=== PATIENT | male | born 1955 | race Caucasian/White ===

== ENCOUNTER 2016-04-08 09:24 | Outpatient (CLI) | payer BC ==
[~2016-04-08 09:24] MED LIST: ACET-868 PO; ASCO500T9 PO; BISA10SU8 RC; BUPR300T54 PO; HYDR25TA4 PO; LACT1CAP72 PO; LOSA25TA13 PO; MAGN400O6 PO; NA P133E RC; VILA40TA PO; ZINC220T PO
== END 2016-04-08 23:59 | disposition home or self-care (01) ==
LOC: WOU 09:24
PROVIDERS: ATTEND Podiatrist Foot & Ankle Surgery
DX: G60.3 Idiopathic progressive neuropathy (principal); L97.521 Non-pressure chronic ulcer of other part of left foot limited to breakdown of skin; E66.9 Obesity, unspecified; Z68.28 Body mass index [BMI] 28.0-28.9, adult; I73.81 Erythromelalgia; M14.672 Charcot's joint, left ankle and foot; M14.671 Charcot's joint, right ankle and foot; S91.114D Laceration without foreign body of right lesser toe(s) without damage to nail, subsequent encounter; W22.8XXD Striking against or struck by other objects, subsequent encounter
CPT/HCPCS: 11042; A6402

== ENCOUNTER 2016-04-22 10:00 | Outpatient (CLI) | payer BC | END 2016-04-22 23:59 | disposition home or self-care (01) | LOC: WOU 10:00 | PROVIDERS: ATTEND Podiatrist Foot & Ankle Surgery | DX: G60.3 Idiopathic progressive neuropathy (principal); I96 Gangrene, not elsewhere classified; L97.421 Non-pressure chronic ulcer of left heel and midfoot limited to breakdown of skin; L60.0 Ingrowing nail; M14.672 Charcot's joint, left ankle and foot; M14.671 Charcot's joint, right ankle and foot; R60.0 Localized edema; I73.81 Erythromelalgia | CPT/HCPCS: 11042; A6402 ==

== ENCOUNTER 2016-05-06 10:14 | Outpatient (CLI) | payer BC | END 2016-05-06 23:59 | disposition home or self-care (01) | LOC: WOU 10:14 | PROVIDERS: ATTEND Podiatrist Foot & Ankle Surgery | DX: G60.3 Idiopathic progressive neuropathy (principal); L97.421 Non-pressure chronic ulcer of left heel and midfoot limited to breakdown of skin; R60.0 Localized edema; L60.0 Ingrowing nail; M14.672 Charcot's joint, left ankle and foot; M86.671 Other chronic osteomyelitis, right ankle and foot; I73.81 Erythromelalgia; L03.116 Cellulitis of left lower limb; Z82.3 Family history of stroke; Z80.9 Family history of malignant neoplasm, unspecified; Z81.1 Family history of alcohol abuse and dependence; Z82.49 Family history of ischemic heart disease and other diseases of the circulatory system | CPT/HCPCS: 11042; 87070; 87077; A6402 ==

== ENCOUNTER 2016-05-09 09:38 | Outpatient (CLI) | payer BC | END 2016-05-09 23:59 | disposition home or self-care (01) | LOC: WOU 09:38 | PROVIDERS: ATTEND Podiatrist Foot & Ankle Surgery | DX: G60.3 Idiopathic progressive neuropathy (principal); L97.421 Non-pressure chronic ulcer of left heel and midfoot limited to breakdown of skin; M14.672 Charcot's joint, left ankle and foot; M14.671 Charcot's joint, right ankle and foot; I73.81 Erythromelalgia; L60.0 Ingrowing nail; E66.9 Obesity, unspecified; Z68.28 Body mass index [BMI] 28.0-28.9, adult; L03.116 Cellulitis of left lower limb; B95.62 Methicillin resistant Staphylococcus aureus infection as the cause of diseases classified elsewhere | CPT/HCPCS: 11042; A6402 ==

== ENCOUNTER 2016-05-16 09:50 | Outpatient (CLI) | payer BC | END 2016-05-16 23:59 | disposition home or self-care (01) | DX: G60.3 Idiopathic progressive neuropathy (principal); L97.429 Non-pressure chronic ulcer of left heel and midfoot with unspecified severity; L03.116 Cellulitis of left lower limb; R60.0 Localized edema; M14.672 Charcot's joint, left ankle and foot; E66.9 Obesity, unspecified; Z68.28 Body mass index [BMI] 28.0-28.9, adult; I73.81 Erythromelalgia; M86.671 Other chronic osteomyelitis, right ankle and foot | CPT/HCPCS: 11042; A6402 ==

== ENCOUNTER 2016-05-23 09:54 | Outpatient (CLI) | payer BC | END 2016-05-23 23:59 | disposition home or self-care (01) | LOC: WOU 09:54 | PROVIDERS: ATTEND Podiatrist Foot & Ankle Surgery | DX: L03.031 Cellulitis of right toe (principal); L60.0 Ingrowing nail; G60.3 Idiopathic progressive neuropathy; M14.672 Charcot's joint, left ankle and foot; M14.671 Charcot's joint, right ankle and foot; I73.81 Erythromelalgia; E66.9 Obesity, unspecified; Z68.28 Body mass index [BMI] 28.0-28.9, adult; R60.0 Localized edema | CPT/HCPCS: 11730; A6402; J3490 ==

== ENCOUNTER 2016-05-30 09:39 | Outpatient (CLI) | payer BC | END 2016-05-30 23:59 | disposition home or self-care (01) | LOC: WOU 09:39 | PROVIDERS: ATTEND Podiatrist Foot & Ankle Surgery | DX: G60.3 Idiopathic progressive neuropathy (principal); M14.671 Charcot's joint, right ankle and foot; M14.672 Charcot's joint, left ankle and foot; E66.9 Obesity, unspecified; Z68.28 Body mass index [BMI] 28.0-28.9, adult; R60.0 Localized edema; I73.81 Erythromelalgia; Z91.19 Patient's noncompliance with other medical treatment and regimen; M86.671 Other chronic osteomyelitis, right ankle and foot | CPT/HCPCS: A6402; G0463 ==

== ENCOUNTER 2016-07-01 09:50 | Outpatient (CLI) | payer BC | END 2016-07-01 23:59 | disposition home or self-care (01) | LOC: WOU 09:50 | PROVIDERS: ATTEND Podiatrist Foot & Ankle Surgery | DX: S91.312A Laceration without foreign body, left foot, initial encounter (principal); X58.XXXA Exposure to other specified factors, initial encounter; Y92.89 Other specified places as the place of occurrence of the external cause; E66.9 Obesity, unspecified; Z68.28 Body mass index [BMI] 28.0-28.9, adult; R60.0 Localized edema; I73.81 Erythromelalgia; M14.672 Charcot's joint, left ankle and foot; G60.3 Idiopathic progressive neuropathy; Z91.19 Patient's noncompliance with other medical treatment and regimen; M14.671 Charcot's joint, right ankle and foot; L03.031 Cellulitis of right toe; F32.9 Major depressive disorder, single episode, unspecified; M86.671 Other chronic osteomyelitis, right ankle and foot; Z79.899 Other long term (current) drug therapy | CPT/HCPCS: 11042; A6402 ==

== ENCOUNTER 2016-07-08 09:44 | Outpatient (CLI) | payer BC | END 2016-07-08 23:59 | disposition home or self-care (01) | LOC: WOU 09:44 | PROVIDERS: ATTEND Podiatrist Foot & Ankle Surgery | DX: S91.312A Laceration without foreign body, left foot, initial encounter (principal); L03.031 Cellulitis of right toe; X58.XXXA Exposure to other specified factors, initial encounter; Y92.89 Other specified places as the place of occurrence of the external cause; M14.672 Charcot's joint, left ankle and foot; G60.3 Idiopathic progressive neuropathy; E66.9 Obesity, unspecified; Z68.28 Body mass index [BMI] 28.0-28.9, adult; I73.81 Erythromelalgia; I10 Essential (primary) hypertension; F32.9 Major depressive disorder, single episode, unspecified; M14.671 Charcot's joint, right ankle and foot; R60.0 Localized edema; L60.3 Nail dystrophy; Z79.899 Other long term (current) drug therapy; Z79.891 Long term (current) use of opiate analgesic | CPT/HCPCS: 11042; A6402 ==

== ENCOUNTER 2016-07-15 11:10 | Outpatient (CLI) | payer BC | END 2016-07-15 23:59 | disposition home or self-care (01) | LOC: WOU 11:10 | PROVIDERS: ATTEND Podiatrist Foot & Ankle Surgery | DX: S91.312A Laceration without foreign body, left foot, initial encounter (principal); X58.XXXA Exposure to other specified factors, initial encounter; M14.672 Charcot's joint, left ankle and foot; G60.3 Idiopathic progressive neuropathy; E66.9 Obesity, unspecified; Z68.28 Body mass index [BMI] 28.0-28.9, adult; I73.81 Erythromelalgia; I10 Essential (primary) hypertension; F32.9 Major depressive disorder, single episode, unspecified; M14.671 Charcot's joint, right ankle and foot; R60.0 Localized edema; L60.3 Nail dystrophy; Z79.899 Other long term (current) drug therapy; Z79.891 Long term (current) use of opiate analgesic; L03.031 Cellulitis of right toe | CPT/HCPCS: 11042; 73630; 87070; A6402 ==

== ENCOUNTER 2016-07-18 08:50 | Outpatient (CLI) | payer BC | END 2016-07-18 23:59 | disposition home or self-care (01) | LOC: WOU 08:50 | PROVIDERS: ATTEND Podiatrist Foot & Ankle Surgery | DX: S91.312A Laceration without foreign body, left foot, initial encounter (principal); X58.XXXA Exposure to other specified factors, initial encounter; G60.3 Idiopathic progressive neuropathy; M14.672 Charcot's joint, left ankle and foot; E66.9 Obesity, unspecified; Z68.28 Body mass index [BMI] 28.0-28.9, adult; I73.81 Erythromelalgia; I10 Essential (primary) hypertension; F32.9 Major depressive disorder, single episode, unspecified; M14.671 Charcot's joint, right ankle and foot; L60.3 Nail dystrophy; Z79.899 Other long term (current) drug therapy; Z79.891 Long term (current) use of opiate analgesic; L03.031 Cellulitis of right toe | CPT/HCPCS: 11042; A6402; A6452 ==

== ENCOUNTER 2016-07-25 09:45 | Outpatient (CLI) | payer BC | END 2016-07-25 23:59 | disposition home or self-care (01) | LOC: WOU 09:45 | PROVIDERS: ATTEND Podiatrist Foot & Ankle Surgery | DX: S91.312D Laceration without foreign body, left foot, subsequent encounter (principal); X58.XXXD Exposure to other specified factors, subsequent encounter; M14.672 Charcot's joint, left ankle and foot; G60.3 Idiopathic progressive neuropathy; E66.9 Obesity, unspecified; Z68.28 Body mass index [BMI] 28.0-28.9, adult; L60.0 Ingrowing nail; M86.671 Other chronic osteomyelitis, right ankle and foot; R60.0 Localized edema; I73.81 Erythromelalgia | CPT/HCPCS: 29445; A6197; A6402 ==

== ENCOUNTER → 2016-08-01 | Outpatient (CLI) | payer BC | END | disposition home or self-care (01) | LOC: WOU 10:20 | PROVIDERS: ATTEND Podiatrist Foot & Ankle Surgery | DX: S91.312D Laceration without foreign body, left foot, subsequent encounter (principal); X58.XXXD Exposure to other specified factors, subsequent encounter; G60.3 Idiopathic progressive neuropathy; M14.672 Charcot's joint, left ankle and foot; M14.671 Charcot's joint, right ankle and foot; E66.9 Obesity, unspecified; Z68.28 Body mass index [BMI] 28.0-28.9, adult; R60.0 Localized edema; L60.0 Ingrowing nail; I73.81 Erythromelalgia; L60.3 Nail dystrophy; L03.031 Cellulitis of right toe | CPT/HCPCS: 29445; A6197; A6402 ==

== ENCOUNTER 2016-08-08 10:34 | Outpatient (CLI) | payer BC | END 2016-08-08 23:59 | disposition home or self-care (01) | LOC: WOU 10:34 | PROVIDERS: ATTEND Podiatrist Foot & Ankle Surgery | DX: S91.312D Laceration without foreign body, left foot, subsequent encounter (principal); X58.XXXD Exposure to other specified factors, subsequent encounter; G60.3 Idiopathic progressive neuropathy; M14.672 Charcot's joint, left ankle and foot; M14.671 Charcot's joint, right ankle and foot; E66.9 Obesity, unspecified; Z68.28 Body mass index [BMI] 28.0-28.9, adult; M86.671 Other chronic osteomyelitis, right ankle and foot; I73.81 Erythromelalgia; M20.42 Other hammer toe(s) (acquired), left foot; M20.41 Other hammer toe(s) (acquired), right foot; L60.3 Nail dystrophy; S90.414A Abrasion, right lesser toe(s), initial encounter; X58.XXXA Exposure to other specified factors, initial encounter; Y92.89 Other specified places as the place of occurrence of the external cause | CPT/HCPCS: 29445; A6402 ==

== ENCOUNTER 2016-08-15 09:43 | Outpatient (CLI) | payer BC | END 2016-08-15 23:59 | disposition home or self-care (01) | LOC: WOU 09:43 | PROVIDERS: ATTEND Podiatrist Foot & Ankle Surgery | DX: S91.312D Laceration without foreign body, left foot, subsequent encounter (principal); X58.XXXD Exposure to other specified factors, subsequent encounter; E11.621 Type 2 diabetes mellitus with foot ulcer; L97.511 Non-pressure chronic ulcer of other part of right foot limited to breakdown of skin; E11.610 Type 2 diabetes mellitus with diabetic neuropathic arthropathy; E11.42 Type 2 diabetes mellitus with diabetic polyneuropathy; I73.81 Erythromelalgia; L60.0 Ingrowing nail; M20.41 Other hammer toe(s) (acquired), right foot; M20.42 Other hammer toe(s) (acquired), left foot; E66.9 Obesity, unspecified | CPT/HCPCS: 11042; A6402 ==

== ENCOUNTER 2016-08-26 10:10 | Outpatient (CLI) | payer BC | END 2016-08-26 23:59 | disposition home or self-care (01) | LOC: WOU 10:10 | PROVIDERS: ATTEND Podiatrist Foot & Ankle Surgery | DX: T81.31XD Disruption of external operation (surgical) wound, not elsewhere classified, subsequent encounter (principal); S91.312D Laceration without foreign body, left foot, subsequent encounter; X58.XXXD Exposure to other specified factors, subsequent encounter; S90.414D Abrasion, right lesser toe(s), subsequent encounter; M14.672 Charcot's joint, left ankle and foot; G60.3 Idiopathic progressive neuropathy; E66.9 Obesity, unspecified; M86.671 Other chronic osteomyelitis, right ankle and foot; I73.81 Erythromelalgia; M20.41 Other hammer toe(s) (acquired), right foot; M20.42 Other hammer toe(s) (acquired), left foot; Z68.28 Body mass index [BMI] 28.0-28.9, adult | CPT/HCPCS: 11042; A6402 ==

== ENCOUNTER 2016-09-05 10:25 | Outpatient (CLI) | payer BC | END 2016-09-05 23:59 | disposition home or self-care (01) | LOC: WOU 10:25 | PROVIDERS: ATTEND Podiatrist Foot & Ankle Surgery | DX: S91.311D Laceration without foreign body, right foot, subsequent encounter (principal); S91.114D Laceration without foreign body of right lesser toe(s) without damage to nail, subsequent encounter; X58.XXXD Exposure to other specified factors, subsequent encounter; M14.672 Charcot's joint, left ankle and foot; M14.671 Charcot's joint, right ankle and foot; I73.81 Erythromelalgia; G60.3 Idiopathic progressive neuropathy; E66.9 Obesity, unspecified; Z68.28 Body mass index [BMI] 28.0-28.9, adult | CPT/HCPCS: 99214; A6402; G0463 ==

== ENCOUNTER 2016-09-26 10:50 | Outpatient (CLI) | payer BC | END 2016-09-26 23:59 | disposition home or self-care (01) | LOC: WOU 10:50 | PROVIDERS: ATTEND Surgery | DX: L97.421 Non-pressure chronic ulcer of left heel and midfoot limited to breakdown of skin (principal); G60.3 Idiopathic progressive neuropathy; S91.312D Laceration without foreign body, left foot, subsequent encounter; S91.114D Laceration without foreign body of right lesser toe(s) without damage to nail, subsequent encounter; X58.XXXD Exposure to other specified factors, subsequent encounter; M14.672 Charcot's joint, left ankle and foot; M14.671 Charcot's joint, right ankle and foot; I73.81 Erythromelalgia; Z80.0 Family history of malignant neoplasm of digestive organs; Z80.8 Family history of malignant neoplasm of other organs or systems; Z82.49 Family history of ischemic heart disease and other diseases of the circulatory system; Z82.3 Family history of stroke; Z82.5 Family history of asthma and other chronic lower respiratory diseases | CPT/HCPCS: 11042; A6402 ==

== ENCOUNTER 2016-10-07 10:52 | Outpatient (CLI) | payer BC | END 2016-10-07 22:35 | disposition home or self-care (01) | LOC: WOU 10:52 | PROVIDERS: ATTEND Podiatrist Foot & Ankle Surgery | DX: G60.3 Idiopathic progressive neuropathy (principal); L97.421 Non-pressure chronic ulcer of left heel and midfoot limited to breakdown of skin; M14.672 Charcot's joint, left ankle and foot; I73.81 Erythromelalgia; Z82.49 Family history of ischemic heart disease and other diseases of the circulatory system; Z80.9 Family history of malignant neoplasm, unspecified; Z82.61 Family history of arthritis; Z82.3 Family history of stroke | CPT/HCPCS: 11042; A6402 ==

== ENCOUNTER 2016-10-14 10:02 | Outpatient (CLI) | payer BC | END 2016-10-14 23:59 | disposition home or self-care (01) | LOC: WOU 10:02 | PROVIDERS: ATTEND Podiatrist Foot & Ankle Surgery | DX: G60.3 Idiopathic progressive neuropathy (principal); L97.421 Non-pressure chronic ulcer of left heel and midfoot limited to breakdown of skin; S91.312S Laceration without foreign body, left foot, sequela; X58.XXXS Exposure to other specified factors, sequela; M14.672 Charcot's joint, left ankle and foot; I73.81 Erythromelalgia; Z82.49 Family history of ischemic heart disease and other diseases of the circulatory system; Z80.9 Family history of malignant neoplasm, unspecified; Z82.61 Family history of arthritis; Z82.3 Family history of stroke; I10 Essential (primary) hypertension; M20.42 Other hammer toe(s) (acquired), left foot; M20.41 Other hammer toe(s) (acquired), right foot; R60.0 Localized edema; E66.9 Obesity, unspecified; Z68.28 Body mass index [BMI] 28.0-28.9, adult; Z79.899 Other long term (current) drug therapy | CPT/HCPCS: 11042; A6402 ==

== ENCOUNTER 2016-10-28 11:15 | Outpatient (CLI) | payer BC | END 2016-10-28 23:59 | disposition home or self-care (01) | LOC: WOU 11:15 | PROVIDERS: ATTEND Podiatrist Foot & Ankle Surgery | DX: M14.672 Charcot's joint, left ankle and foot (principal); S91.312D Laceration without foreign body, left foot, subsequent encounter; X58.XXXD Exposure to other specified factors, subsequent encounter; E66.9 Obesity, unspecified; Z68.28 Body mass index [BMI] 28.0-28.9, adult; R60.0 Localized edema; M86.671 Other chronic osteomyelitis, right ankle and foot; I73.81 Erythromelalgia; Z82.3 Family history of stroke; Z82.49 Family history of ischemic heart disease and other diseases of the circulatory system; Z82.61 Family history of arthritis; Z79.899 Other long term (current) drug therapy; F32.9 Major depressive disorder, single episode, unspecified | CPT/HCPCS: 11042; A6402 ==

== ENCOUNTER 2016-11-04 10:55 | Outpatient (CLI) | payer BC | END 2016-11-04 23:59 | disposition home or self-care (01) | LOC: WOU 10:55 | PROVIDERS: ATTEND Podiatrist Foot & Ankle Surgery | DX: M14.672 Charcot's joint, left ankle and foot (principal); G60.3 Idiopathic progressive neuropathy; E66.9 Obesity, unspecified; Z68.28 Body mass index [BMI] 28.0-28.9, adult; M86.671 Other chronic osteomyelitis, right ankle and foot; I73.81 Erythromelalgia; S91.114A Laceration without foreign body of right lesser toe(s) without damage to nail, initial encounter; X58.XXXA Exposure to other specified factors, initial encounter; Y92.89 Other specified places as the place of occurrence of the external cause; R60.0 Localized edema | CPT/HCPCS: 11042; A6402 ==

== ENCOUNTER 2016-11-11 11:16 | Outpatient (CLI) | payer BC | END 2016-11-11 23:59 | disposition home or self-care (01) | LOC: WOU 11:16 | PROVIDERS: ATTEND Podiatrist Foot & Ankle Surgery | DX: G60.3 Idiopathic progressive neuropathy (principal); M14.672 Charcot's joint, left ankle and foot; E66.9 Obesity, unspecified; Z68.28 Body mass index [BMI] 28.0-28.9, adult; I73.81 Erythromelalgia; S91.312D Laceration without foreign body, left foot, subsequent encounter; X58.XXXD Exposure to other specified factors, subsequent encounter; M86.671 Other chronic osteomyelitis, right ankle and foot; L03.031 Cellulitis of right toe | CPT/HCPCS: 11042; A6402 ==

== ENCOUNTER 2016-11-18 10:20 | Outpatient (CLI) | payer BC | END 2016-11-18 23:59 | disposition home or self-care (01) | LOC: WOU 10:20 | PROVIDERS: ATTEND Podiatrist Foot & Ankle Surgery | DX: S91.312A Laceration without foreign body, left foot, initial encounter (principal); X58.XXXA Exposure to other specified factors, initial encounter; Y92.89 Other specified places as the place of occurrence of the external cause; M14.672 Charcot's joint, left ankle and foot; G60.3 Idiopathic progressive neuropathy; E66.9 Obesity, unspecified; Z68.28 Body mass index [BMI] 28.0-28.9, adult; M86.671 Other chronic osteomyelitis, right ankle and foot; I73.81 Erythromelalgia; R60.0 Localized edema | CPT/HCPCS: 11042; A6402 ==

== ENCOUNTER 2016-12-02 10:30 | Outpatient (CLI) | payer BC | END 2016-12-02 23:59 | disposition home or self-care (01) | LOC: WOU 10:30 | PROVIDERS: ATTEND Podiatrist Foot & Ankle Surgery | DX: G60.3 Idiopathic progressive neuropathy (principal); M14.672 Charcot's joint, left ankle and foot; E66.9 Obesity, unspecified; Z68.28 Body mass index [BMI] 28.0-28.9, adult; I73.81 Erythromelalgia; L97.421 Non-pressure chronic ulcer of left heel and midfoot limited to breakdown of skin; S91.312A Laceration without foreign body, left foot, initial encounter; X58.XXXA Exposure to other specified factors, initial encounter | CPT/HCPCS: 11042; A6402 ==

== ENCOUNTER 2016-12-19 10:25 | Outpatient (CLI) | payer BC | END 2016-12-19 23:59 | disposition home or self-care (01) | LOC: WOU 10:25 | PROVIDERS: ATTEND Podiatrist Foot & Ankle Surgery | DX: G60.3 Idiopathic progressive neuropathy (principal); L97.521 Non-pressure chronic ulcer of other part of left foot limited to breakdown of skin; E66.9 Obesity, unspecified; Z68.28 Body mass index [BMI] 28.0-28.9, adult; I73.81 Erythromelalgia; M20.42 Other hammer toe(s) (acquired), left foot; M20.41 Other hammer toe(s) (acquired), right foot; M14.672 Charcot's joint, left ankle and foot; S91.312S Laceration without foreign body, left foot, sequela; R60.0 Localized edema; X58.XXXS Exposure to other specified factors, sequela | CPT/HCPCS: 11042; A6402 ==

== ENCOUNTER 2016-12-24 11:17 | Outpatient (CLI) | payer BC | END 2016-12-24 23:59 | disposition home or self-care (01) | LOC: RAD 11:17 | PROVIDERS: ATTEND Podiatrist Foot & Ankle Surgery | DX: L97.529 Non-pressure chronic ulcer of other part of left foot with unspecified severity (principal) | CPT/HCPCS: 73630-TC ==

== ENCOUNTER 2016-12-26 10:40 | Outpatient (CLI) | payer BC | END 2016-12-26 23:59 | disposition home or self-care (01) | LOC: WOU 10:40 | PROVIDERS: ATTEND Podiatrist Foot & Ankle Surgery | DX: S91.312A Laceration without foreign body, left foot, initial encounter (principal); G60.3 Idiopathic progressive neuropathy; X58.XXXA Exposure to other specified factors, initial encounter; M14.672 Charcot's joint, left ankle and foot; E66.9 Obesity, unspecified; Z68.28 Body mass index [BMI] 28.0-28.9, adult; R60.0 Localized edema; I73.81 Erythromelalgia | CPT/HCPCS: 11042; A6402 ×3 ==

== ENCOUNTER 2016-12-27 09:58 | Outpatient (CLI) | payer BC | END 2016-12-27 23:59 | disposition home or self-care (01) | LOC: CT 09:58 | PROVIDERS: ATTEND Podiatrist Foot & Ankle Surgery | DX: M81.0 Age-related osteoporosis without current pathological fracture (principal); M21.962 Unspecified acquired deformity of left lower leg; M24.675 Ankylosis, left foot | CPT/HCPCS: 73700-TC ==

== ENCOUNTER 2017-01-02 10:15 | Outpatient (CLI) | payer BC | END 2017-01-02 23:59 | disposition home or self-care (01) | LOC: WOU 10:15 | PROVIDERS: ATTEND Podiatrist Foot & Ankle Surgery | DX: S91.312A Laceration without foreign body, left foot, initial encounter (principal); G60.3 Idiopathic progressive neuropathy; X58.XXXA Exposure to other specified factors, initial encounter; M14.672 Charcot's joint, left ankle and foot; E66.9 Obesity, unspecified; Z68.28 Body mass index [BMI] 28.0-28.9, adult; R60.0 Localized edema; I73.81 Erythromelalgia; M20.41 Other hammer toe(s) (acquired), right foot; M20.42 Other hammer toe(s) (acquired), left foot | CPT/HCPCS: 11042; A6402 ==

== ENCOUNTER 2017-01-09 10:30 | Outpatient (CLI) | payer BC | END 2017-01-09 23:59 | disposition home or self-care (01) | LOC: WOU 10:30 | PROVIDERS: ATTEND Podiatrist Foot & Ankle Surgery | DX: S91.312A Laceration without foreign body, left foot, initial encounter (principal); X58.XXXA Exposure to other specified factors, initial encounter; G60.3 Idiopathic progressive neuropathy; M14.672 Charcot's joint, left ankle and foot; E66.9 Obesity, unspecified; Z68.28 Body mass index [BMI] 28.0-28.9, adult; I73.81 Erythromelalgia; M20.41 Other hammer toe(s) (acquired), right foot; M20.42 Other hammer toe(s) (acquired), left foot | CPT/HCPCS: 11042; A6209; A6402 ×2 ==

== ENCOUNTER 2017-01-13 10:20 | Outpatient (CLI) | payer BC | END 2017-01-13 23:59 | disposition home or self-care (01) | LOC: WOU 10:20 | PROVIDERS: ATTEND Podiatrist Foot & Ankle Surgery | DX: S91.312A Laceration without foreign body, left foot, initial encounter (principal); X58.XXXA Exposure to other specified factors, initial encounter; G60.3 Idiopathic progressive neuropathy; M14.672 Charcot's joint, left ankle and foot; E66.9 Obesity, unspecified; Z68.28 Body mass index [BMI] 28.0-28.9, adult; I73.81 Erythromelalgia; M20.42 Other hammer toe(s) (acquired), left foot; M20.41 Other hammer toe(s) (acquired), right foot | CPT/HCPCS: 11042; A6209; A6402 ==

== ENCOUNTER 2017-01-20 10:05 | Outpatient (CLI) | payer BC | END 2017-01-20 23:59 | disposition home or self-care (01) | LOC: WOU 10:05 | PROVIDERS: ATTEND Podiatrist Foot & Ankle Surgery | DX: L97.511 Non-pressure chronic ulcer of other part of right foot limited to breakdown of skin (principal); S91.312S Laceration without foreign body, left foot, sequela; X58.XXXS Exposure to other specified factors, sequela; S91.111A Laceration without foreign body of right great toe without damage to nail, initial encounter; S91.114A Laceration without foreign body of right lesser toe(s) without damage to nail, initial encounter; X58.XXXA Exposure to other specified factors, initial encounter; Y92.89 Other specified places as the place of occurrence of the external cause; I73.81 Erythromelalgia; E66.9 Obesity, unspecified; M20.42 Other hammer toe(s) (acquired), left foot; M20.41 Other hammer toe(s) (acquired), right foot; R60.0 Localized edema; M14.672 Charcot's joint, left ankle and foot | CPT/HCPCS: 11042; A6209; A6402 ==

== ENCOUNTER 2017-01-23 11:25 | Outpatient (CLI) | payer BC | END 2017-01-23 23:59 | disposition home or self-care (01) | LOC: WOU 11:25 | PROVIDERS: ATTEND Podiatrist Foot & Ankle Surgery | DX: G60.9 Hereditary and idiopathic neuropathy, unspecified (principal); L97.511 Non-pressure chronic ulcer of other part of right foot limited to breakdown of skin; S91.114A Laceration without foreign body of right lesser toe(s) without damage to nail, initial encounter; X58.XXXA Exposure to other specified factors, initial encounter; Y92.89 Other specified places as the place of occurrence of the external cause; M14.672 Charcot's joint, left ankle and foot; M14.671 Charcot's joint, right ankle and foot; I73.81 Erythromelalgia; E66.9 Obesity, unspecified; M20.42 Other hammer toe(s) (acquired), left foot; M20.41 Other hammer toe(s) (acquired), right foot; R60.0 Localized edema | CPT/HCPCS: 11042; A6209; A6402 ==

== ENCOUNTER 2017-01-30 10:45 | Outpatient (CLI) | payer BC | END 2017-01-30 23:59 | disposition home or self-care (01) | LOC: WOU 10:45 | PROVIDERS: ATTEND Podiatrist Foot & Ankle Surgery | DX: L97.511 Non-pressure chronic ulcer of other part of right foot limited to breakdown of skin (principal); S91.312S Laceration without foreign body, left foot, sequela; X58.XXXS Exposure to other specified factors, sequela; I73.81 Erythromelalgia; G60.3 Idiopathic progressive neuropathy; M14.672 Charcot's joint, left ankle and foot; M20.42 Other hammer toe(s) (acquired), left foot; M20.41 Other hammer toe(s) (acquired), right foot; R60.0 Localized edema; E66.9 Obesity, unspecified | CPT/HCPCS: 11042; A6209; A6402 ==

== ENCOUNTER 2017-02-03 10:45 | Outpatient (CLI) | payer BC | END 2017-02-03 23:59 | disposition home or self-care (01) | LOC: WOU 10:45 | PROVIDERS: ATTEND Podiatrist Foot & Ankle Surgery | DX: L97.511 Non-pressure chronic ulcer of other part of right foot limited to breakdown of skin (principal); S91.312S Laceration without foreign body, left foot, sequela; X58.XXXS Exposure to other specified factors, sequela; I73.81 Erythromelalgia; G60.3 Idiopathic progressive neuropathy; M14.672 Charcot's joint, left ankle and foot; M20.42 Other hammer toe(s) (acquired), left foot; M20.41 Other hammer toe(s) (acquired), right foot; R60.0 Localized edema; E66.9 Obesity, unspecified | CPT/HCPCS: 11042; A6209; A6402 ==

== ENCOUNTER 2017-02-06 10:27 | Outpatient (CLI) | payer BC | END 2017-02-06 23:59 | LOC: WOU 10:27 | PROVIDERS: ATTEND Podiatrist Foot & Ankle Surgery | DX: L97.511 Non-pressure chronic ulcer of other part of right foot limited to breakdown of skin (principal); S91.312S Laceration without foreign body, left foot, sequela; X58.XXXS Exposure to other specified factors, sequela; I73.81 Erythromelalgia; G60.3 Idiopathic progressive neuropathy; M14.672 Charcot's joint, left ankle and foot; M20.42 Other hammer toe(s) (acquired), left foot; M20.41 Other hammer toe(s) (acquired), right foot; R60.0 Localized edema; E66.9 Obesity, unspecified; Z68.28 Body mass index [BMI] 28.0-28.9, adult | CPT/HCPCS: 11042; A6209; A6402 ==

== ENCOUNTER 2017-02-10 10:50 | Outpatient (CLI) | payer BC | END 2017-02-10 23:59 | disposition home or self-care (01) | LOC: WOU 10:50 | PROVIDERS: ATTEND Podiatrist Foot & Ankle Surgery | DX: L97.422 Non-pressure chronic ulcer of left heel and midfoot with fat layer exposed (principal); S91.312S Laceration without foreign body, left foot, sequela; X58.XXXS Exposure to other specified factors, sequela; I73.81 Erythromelalgia; F60.3 Borderline personality disorder; M14.672 Charcot's joint, left ankle and foot; M20.42 Other hammer toe(s) (acquired), left foot; M20.41 Other hammer toe(s) (acquired), right foot; R60.0 Localized edema; E66.9 Obesity, unspecified; Z68.28 Body mass index [BMI] 28.0-28.9, adult | CPT/HCPCS: 11042; A6209; A6402 ==

== ENCOUNTER 2017-02-17 11:20 | Outpatient (CLI) | payer BC | END 2017-02-17 23:59 | disposition home or self-care (01) | LOC: WOU 11:20 | PROVIDERS: ATTEND Podiatrist Foot & Ankle Surgery | DX: L97.422 Non-pressure chronic ulcer of left heel and midfoot with fat layer exposed (principal); L97.512 Non-pressure chronic ulcer of other part of right foot with fat layer exposed; S91.312S Laceration without foreign body, left foot, sequela; X58.XXXS Exposure to other specified factors, sequela; I73.81 Erythromelalgia; G60.3 Idiopathic progressive neuropathy; M14.672 Charcot's joint, left ankle and foot; M20.42 Other hammer toe(s) (acquired), left foot; M20.41 Other hammer toe(s) (acquired), right foot; R60.0 Localized edema; E66.9 Obesity, unspecified; Z68.28 Body mass index [BMI] 28.0-28.9, adult | CPT/HCPCS: 11042; A6209; A6402 ==

== ENCOUNTER 2017-02-20 10:15 | Outpatient (CLI) | payer BC | END 2017-02-20 23:59 | disposition home or self-care (01) | LOC: WOU 10:15 | PROVIDERS: ATTEND Podiatrist Foot & Ankle Surgery | DX: L97.422 Non-pressure chronic ulcer of left heel and midfoot with fat layer exposed (principal); L97.512 Non-pressure chronic ulcer of other part of right foot with fat layer exposed; S91.312S Laceration without foreign body, left foot, sequela; X58.XXXS Exposure to other specified factors, sequela; I73.81 Erythromelalgia; G60.3 Idiopathic progressive neuropathy; M14.672 Charcot's joint, left ankle and foot; M20.42 Other hammer toe(s) (acquired), left foot; M20.41 Other hammer toe(s) (acquired), right foot; R60.0 Localized edema; E66.9 Obesity, unspecified; Z68.28 Body mass index [BMI] 28.0-28.9, adult | CPT/HCPCS: 11042; A6402 ==

== ENCOUNTER 2017-02-27 10:53 | Outpatient (CLI) | payer BC | END 2017-02-27 23:59 | disposition home or self-care (01) | LOC: WOU 10:53 | PROVIDERS: ATTEND Podiatrist Foot & Ankle Surgery | DX: L97.422 Non-pressure chronic ulcer of left heel and midfoot with fat layer exposed (principal); L97.512 Non-pressure chronic ulcer of other part of right foot with fat layer exposed; G60.3 Idiopathic progressive neuropathy; S91.312S Laceration without foreign body, left foot, sequela; X58.XXXS Exposure to other specified factors, sequela; I73.81 Erythromelalgia; M14.672 Charcot's joint, left ankle and foot; M20.42 Other hammer toe(s) (acquired), left foot; M20.41 Other hammer toe(s) (acquired), right foot; R60.0 Localized edema; E66.9 Obesity, unspecified; Z68.28 Body mass index [BMI] 28.0-28.9, adult | CPT/HCPCS: 11042; A6402 ==

== ENCOUNTER 2017-03-03 11:55 | Outpatient (CLI) | payer BC | END 2017-03-03 23:59 | disposition home or self-care (01) | LOC: WOU 11:55 | PROVIDERS: ATTEND Podiatrist Foot & Ankle Surgery | DX: S91.312D Laceration without foreign body, left foot, subsequent encounter (principal); S91.311D Laceration without foreign body, right foot, subsequent encounter; X58.XXXD Exposure to other specified factors, subsequent encounter; L97.511 Non-pressure chronic ulcer of other part of right foot limited to breakdown of skin; M14.672 Charcot's joint, left ankle and foot; G60.3 Idiopathic progressive neuropathy; E66.9 Obesity, unspecified; R60.0 Localized edema; Z68.28 Body mass index [BMI] 28.0-28.9, adult | CPT/HCPCS: A6402; G0463 ==

== ENCOUNTER 2017-03-10 14:00 | Outpatient (CLI) | payer BC | END 2017-03-10 23:59 | disposition home or self-care (01) | LOC: WOU 14:00 | PROVIDERS: ATTEND Podiatrist Foot & Ankle Surgery | DX: L97.422 Non-pressure chronic ulcer of left heel and midfoot with fat layer exposed (principal); L97.512 Non-pressure chronic ulcer of other part of right foot with fat layer exposed; G60.3 Idiopathic progressive neuropathy; S91.312S Laceration without foreign body, left foot, sequela; S91.11 Laceration without foreign body of toe without damage to nail; X58.XXXS Exposure to other specified factors, sequela; M20.42 Other hammer toe(s) (acquired), left foot; M20.41 Other hammer toe(s) (acquired), right foot; E66.9 Obesity, unspecified; I73.81 Erythromelalgia; Z68.28 Body mass index [BMI] 28.0-28.9, adult; M14.672 Charcot's joint, left ankle and foot; R60.0 Localized edema | CPT/HCPCS: 11042; A6402 ==

== ENCOUNTER 2017-03-13 12:58 | Outpatient (CLI) | payer BC ==
[2017-03-13 13:52] LABS: CALCIUM, SERUM 9.5 mg/dL (8.5-10.1); CREATININE 1.4 mg/dL (0.6-1.3); POTASSIUM 3.9 mmol/L (3.5-5.1)
[2017-03-13 13:55] LABS: BASOPHILS % (AUTO) 0.3 % (0.0-2.0); EOSINOPHILS # (AUTO) 0.2 /CMM (0.0-0.7); EOSINOPHILS % (AUTO) 2.9 % (0.0-6.0); HEMATOCRIT 42 % (39-51); HEMOGLOBIN 14.1 g/dL (13.5-17.5); LYMPHOCYTES # (AUTO) 1.8 /CMM (0.8-4.8); LYMPHOCYTES % (AUTO) 22.2 % (20.0-44.0); MEAN CORPUSCULAR HEMOGLOBIN 31 PG (26.0-33.0); MEAN CORPUSCULAR HGB CONC 33 g/dl (31.0-36.0); MEAN CORPUSCULAR VOLUME 92 fL (80-96); MONOCYTES # (AUTO) 0.5 /CMM (0.1-1.30); MONOCYTES % (AUTO) 6.5 % (2.0-12.0); NEUTROPHILS # (AUTO) 5.6 /CMM (1.8-8.9); NEUTROPHILS % (AUTO) 68.1 % (43.0-81.0); PLATELET COUNT (AUTO) 342 /CMM (150-450); RDW COEFFICIENT OF VARIATION 14.3 (11.5-15.0); WHITE BLOOD COUNT (AUTO) 8.2 K/uL (4.3-11.0)
[2017-03-15 15:36] LABS: INR 0.95 (0.87-1.13); PROTHROMBIN TIME 9.9 SECS (9.5-12.7)
== END 2017-03-13 23:59 | disposition home or self-care (01) ==
LOC: LAB 12:58
PROVIDERS: ATTEND Podiatrist Foot & Ankle Surgery
DX: Z01.818 Encounter for other preprocedural examination (principal)
CPT/HCPCS: 36415; 71020-TC; 80048-TC; 85025-TC; 85610-TC

== ENCOUNTER 2017-03-18 11:30 | Outpatient (CLI) | payer BC | END 2017-03-18 23:59 | disposition home or self-care (01) | LOC: WOU 11:30 | PROVIDERS: ATTEND Nurse Practitioner Acute Care | DX: Z01.818 Encounter for other preprocedural examination (principal); L97.529 Non-pressure chronic ulcer of other part of left foot with unspecified severity; G47.30 Sleep apnea, unspecified; G89.4 Chronic pain syndrome; M14.679 Charcot's joint, unspecified ankle and foot; I73.81 Erythromelalgia; K21.9 Gastro-esophageal reflux disease without esophagitis; F41.9 Anxiety disorder, unspecified; F32.9 Major depressive disorder, single episode, unspecified; I10 Essential (primary) hypertension; N40.0 Benign prostatic hyperplasia without lower urinary tract symptoms; Z79.899 Other long term (current) drug therapy; M81.0 Age-related osteoporosis without current pathological fracture; M21.42 Flat foot [pes planus] (acquired), left foot | CPT/HCPCS: G0463 ==

== ENCOUNTER 2017-03-20 09:15 | Inpatient (IN) | payer BC ==
[~2017-03-20] VITALS: Ht 180.3 cm; Wt 99.8 kg
--- NOTE | 2017-03-20 09:45 | NUR ---
MS ZINC CHLORIDE OPERATOR NOTE PATIENT IS ALERT AND ORIENTED x4. NO PAIN AT THIS TIME. NO SOB OR DISTRESS NOTED. 94% ON ROOM AIR, TOLERATING WELL. ALL BELONGINGS WITH PATIENT AT BEDSIDE. PATIENT ADMITTED FROM WOUND CLINIC FOR DAY SURGERY FOR LEFT FOOT WOUND DEBRIDEMENT AND BONE EXCISION. ALL CONSENTS OBTAINED AND SURGICAL CHECKLIST IN CHART. PATIENT HAS NO KNOWN ALLERGIES. FULL CODE. NO ISOLATION. MRSA TO BE COLLECTED. WILL CONTINUE TO MONITOR THROUGHOUT SHIFT
[2017-03-20 09:55] VITALS: BP 120/78
[2017-03-20] MEDS ORDERED: METH10TA2 PO (11:05)
[2017-03-20] MEDS ORDERED: MODA200T22 PO (11:05)
[2017-03-20] MEDS ORDERED: PREG100C PO (11:05)
[2017-03-20] MEDS ORDERED: CAND32TA2 PO (11:05)
[2017-03-20] MEDS ORDERED: ARMO250T2 PO (11:05)
[2017-03-20] MEDS ORDERED: MIDAZOLAM HCL 2 MG/2ML VIAL ONE (12:06)
[2017-03-20] MEDS ORDERED: FENTANYL PF 100MCG/2ML AMPUL ONE (12:06)
--- NOTE | 2017-03-20 12:06 | NUR ---
MS RN NOTE PATIENT TAKEN TO OR. PATIENT IS ALERT AND ORIENTED x4. NO PAIN AT THIS TIME. NO SOB OR DISTRESS NOTED. WILL MONITOR WHEN PATIENT RETURNS
[2017-03-20] MEDS ORDERED: BUPIVACAINE 0.5 % PF 150 MG/30 ML VIAL ONE (12:19)
[2017-03-20] MEDS ORDERED: LIDOCAINE 0.5% HCL 50 ML VIAL ONE (12:19)
[2017-03-20] MEDS ORDERED: GELATIN SPONGE,ABSORBABLE 1 EA SPONGE TP ONE (13:49)
[2017-03-20] MEDS ORDERED: POVIDONE-IODINE OINT 28.4 GM TUBE ONE (13:57)
[2017-03-20] MEDS ORDERED: ANESTHESIA TRAY IN PYXIS 1 EA TRAY MC ONE (14:41)
--- NOTE | 2017-03-20 15:45 | NUR ---
MS RN NOTE PATIENT ARIEL FROM SURGERY, HAD LEFT FOOT WOUND DEBRIDEMENT DONE WITH DR. BAE AND DR. FUNG. PATIENT ALERT AND ORIENTED x4. NO PAIN AT THIS TIME. NO SOB OR DISTRESS NOTED. CALL LIGHT WITHIN REACH. SAFETY MEASURES IMPLEMENTED. SPLINT ON LEFT LOWER EXTREMITY NO TO BE REMOVED, PT EVALUATION , ORDERS NOTED AND CARRIED OUT. WILL CONTINUE TO MONITOR
[2017-03-20 16:00] VITALS: BP 127/71
--- NOTE | 2017-03-20 18:28 | NUR ---
MS RN CLOSING NOTE PATIENT IS ALERT AND ORIENTED x4. NO PAIN AT THIS TIME. NO SOB OR DISTRESS NOTED. CALL LIGHT WITHIN REACH AT ALL TIMES. SAFETY MEASURES IMPLEMENTED. ABLE TO COMMUNICATE NEEDS. HAS LEFT LOWER EXTREMITY SPLINT AND IS S/P WOUND DEBRIDEMENT TODAY.IV ON LEFT AC AND LEFT WRIST INTACT AND PATENT NO REDNESS OR SWELLING NOTED. WILL ENDORSE TO METEOROLOGICAL EQUIPMENT REPAIRER NURSE FOR MICHELLE
--- NOTE | 2017-03-20 20:59 | NUR ---
MS RN NOTES NO SIGNIFICANT CHANGES NOTED. REPORT GIVEN TO KELSEY DAVIS FOR CONTINUITY OF CARE.
--- NOTE | 2017-03-20 21:00 | NUR ---
RN OPEN NOTES RECEIVED PATIENT AWAKE IN BED. A/O X4. NO SIGNS OF DISTRESS OR DISCOMFORT. BREATHING EVEN AND UNLABORED. DENIES ANY PAIN AT THIS TIME. IV ACCESS IN LAC AND L WRIST, PATENT AND INTACT, NO SIGNS OF REDNESS OR INFILTRATION. DRESSING ON LLE C/D/I. BED IN LOW LOCKED POSITION WITH SIDE RAILS X2. CALL LIGHT WITHIN REACH. WILL CONTINUE TO MONITOR.
--- NOTE | 2017-03-21 06:49 | NUR ---
RN CLOSING NOTES PATIENT AWAKE IN BED. A/O X4. NO SIGNS OF DISTRESS OR DISCOMFORT. BREATHING EVEN AND UNLABORED. DENIES ANY PAIN AT THIS TIME. IV ACCESS IN LAC AND L WRIST, PATENT AND INTACT, NO SIGNS OF REDNESS OR INFILTRATION. DRESSING ON LLE C/D/I. ALL NEEDS MET. NO SIGNIFICANT CHANGES THROUGH THE NIGHT. BED IN LOW LOCKED POSITION WITH SIDE RAILS X2. CALL LIGHT WITHIN REACH. WILL ENDORSE TO AM SHIFT FOR MICHELLE.
--- NOTE | 2017-03-21 07:55 | NUR ---
MS RN OPENING NOTE PATIENT IS ALERT AND ORIENTED x4. NO PAIN AT THIS TIME. NO SOB OR DISTRESS NOTED. CALL LIGHT WITHIN REACH. SAFETY MEASURES IMPLEMENTED. IV ON LEFT AC AND LEFT WRIST INTACT AND PATENT, NO IV FLUIDS RUNNING AT THIS TIME. ABLE TO COMMUNICATE NEEDS. PATIENT HAS MEDICATION AT BEDSIDE, ASKED PATIENT IF WE CAN TAKE HIS MEDICATION TO PHARMACY, PATIENT REFUSED TO GIVE MEDICATIONS. INFORMED PATIENT NOT TO TAKE MEDS. NOTIFIED MD WELL. WILL CONTINUE TO MONITOR THROUGHOUT SHIFT
[2017-03-21 08:00] VITALS: BP 127/73
--- NOTE | 2017-03-21 17:28 | NUR ---
MS FLORAL DESIGNER NOTE PATIENT IS ALERT AND ORIENTED x4. NO PAIN AT THIS TIME. CALL LIGHT WITHIN REACH AT ALL TIMES. SAFETY MEASURES IMPLEMENTED. ABLE TO COMMUNICATE NEEDS. IV REMOVED SKIN INTACT, ALL BELONGINGS WITH PATIENT UPON DISCHARGE. ALL DISCHARGE INSTRUCTIONS GIVEN TO PATIENT. PATIENT WILL FOLLOW UP WITH WOUND CLINIC ON FRIDAY. LEFT PRIVATE CAR
== END 2017-03-21 17:12 | disposition home or self-care (01) | DRG 504 ==
LOC: DS 09:15 → MEDSG2 09:19
PROVIDERS: ADMIT Podiatrist Foot & Ankle Surgery; ATTEND Podiatrist Foot & Ankle Surgery
PROC: 0QBP0ZZ Excision of Left Metatarsal, Open Approach (ICD-10-PCS; principal; 2017-03-20 12:49)
DX: M89.9 Disorder of bone, unspecified (principal); L97.528 Non-pressure chronic ulcer of other part of left foot with other specified severity; G60.3 Idiopathic progressive neuropathy; M14.672 Charcot's joint, left ankle and foot; I10 Essential (primary) hypertension; I25.10 Atherosclerotic heart disease of native coronary artery without angina pectoris; I73.81 Erythromelalgia
CPT/HCPCS: 87081-TC; A6209; A6402; J0690; J2250; J2405; J2704; J3010; J3490; Z7610

== ENCOUNTER 2017-03-26 14:45 | Outpatient (CLI) | payer BC ==
[~2017-03-26 14:45] MED LIST changes: -ACET-868 PO; +ARMO250T2 PO; -ASCO500T9 PO; -BISA10SU8 RC; +CAND32TA2 PO; -LACT1CAP72 PO; -LOSA25TA13 PO; -MAGN400O6 PO; +METH10TA2 PO; +MODA200T22 PO; -NA P133E RC; +PREG100C PO; -ZINC220T PO
== END 2017-03-26 23:59 | disposition home or self-care (01) ==
LOC: WOU 14:45
PROVIDERS: ATTEND Podiatrist Foot & Ankle Surgery
DX: T81.31XA Disruption of external operation (surgical) wound, not elsewhere classified, initial encounter (principal); G60.3 Idiopathic progressive neuropathy; L97.521 Non-pressure chronic ulcer of other part of left foot limited to breakdown of skin; L97.511 Non-pressure chronic ulcer of other part of right foot limited to breakdown of skin; L97.422 Non-pressure chronic ulcer of left heel and midfoot with fat layer exposed; M20.41 Other hammer toe(s) (acquired), right foot; M20.42 Other hammer toe(s) (acquired), left foot; I73.81 Erythromelalgia; E66.9 Obesity, unspecified; Z68.29 Body mass index [BMI] 29.0-29.9, adult; M14.672 Charcot's joint, left ankle and foot
CPT/HCPCS: 11042; 29445; A6253 ×2; A6402

== ENCOUNTER 2017-04-03 09:35 | Outpatient (CLI) | payer BC | END 2017-04-03 23:59 | disposition home or self-care (01) | LOC: WOU 09:35 | PROVIDERS: ATTEND Podiatrist Foot & Ankle Surgery | DX: T81.31XD Disruption of external operation (surgical) wound, not elsewhere classified, subsequent encounter (principal); G60.3 Idiopathic progressive neuropathy; L97.511 Non-pressure chronic ulcer of other part of right foot limited to breakdown of skin; L97.422 Non-pressure chronic ulcer of left heel and midfoot with fat layer exposed; M20.41 Other hammer toe(s) (acquired), right foot; R60.0 Localized edema; I73.81 Erythromelalgia; E66.9 Obesity, unspecified; M14.672 Charcot's joint, left ankle and foot; S91.311D Laceration without foreign body, right foot, subsequent encounter; X58.XXXD Exposure to other specified factors, subsequent encounter | CPT/HCPCS: A6253; A6402 ==

== ENCOUNTER 2017-04-10 13:35 | Outpatient (CLI) | payer BC | END 2017-04-10 23:59 | disposition home or self-care (01) | LOC: WOU 13:35 | PROVIDERS: ATTEND Podiatrist Foot & Ankle Surgery | DX: T81.31XD Disruption of external operation (surgical) wound, not elsewhere classified, subsequent encounter (principal); G60.3 Idiopathic progressive neuropathy; M14.672 Charcot's joint, left ankle and foot; L97.511 Non-pressure chronic ulcer of other part of right foot limited to breakdown of skin; E66.9 Obesity, unspecified; I73.81 Erythromelalgia; M20.42 Other hammer toe(s) (acquired), left foot; M20.41 Other hammer toe(s) (acquired), right foot; R60.0 Localized edema; Z48.01 Encounter for change or removal of surgical wound dressing | CPT/HCPCS: 29445; A6253; A6402 ==

== ENCOUNTER → 2017-04-17 | Outpatient (CLI) | payer BC | END | disposition home or self-care (01) | LOC: WOU 13:35 | PROVIDERS: ATTEND Podiatrist Foot & Ankle Surgery | DX: T81.31XD Disruption of external operation (surgical) wound, not elsewhere classified, subsequent encounter (principal); G60.3 Idiopathic progressive neuropathy; L97.512 Non-pressure chronic ulcer of other part of right foot with fat layer exposed; I73.81 Erythromelalgia; M20.42 Other hammer toe(s) (acquired), left foot; M20.41 Other hammer toe(s) (acquired), right foot; R60.0 Localized edema; E66.9 Obesity, unspecified; Z68.29 Body mass index [BMI] 29.0-29.9, adult; M14.672 Charcot's joint, left ankle and foot | CPT/HCPCS: 28010; A6253 ×2; A6402 ==

== ENCOUNTER 2017-04-24 13:15 | Outpatient (CLI) | payer BC | END 2017-04-24 23:59 | disposition home or self-care (01) | LOC: WOU 13:15 | PROVIDERS: ATTEND Podiatrist Foot & Ankle Surgery | DX: T81.31XA Disruption of external operation (surgical) wound, not elsewhere classified, initial encounter (principal); L97.512 Non-pressure chronic ulcer of other part of right foot with fat layer exposed; G60.3 Idiopathic progressive neuropathy; M20.42 Other hammer toe(s) (acquired), left foot; M20.41 Other hammer toe(s) (acquired), right foot; R60.0 Localized edema; E66.9 Obesity, unspecified; I73.81 Erythromelalgia; M14.672 Charcot's joint, left ankle and foot | CPT/HCPCS: 11042; A6253; A6402 ==

== ENCOUNTER 2017-04-28 14:00 | Outpatient (CLI) | payer BC | END 2017-04-28 23:59 | disposition home or self-care (01) | LOC: WOU 14:00 | PROVIDERS: ATTEND Podiatrist Foot & Ankle Surgery | DX: T81.31XA Disruption of external operation (surgical) wound, not elsewhere classified, initial encounter (principal); L97.512 Non-pressure chronic ulcer of other part of right foot with fat layer exposed; M14.672 Charcot's joint, left ankle and foot; L97.522 Non-pressure chronic ulcer of other part of left foot with fat layer exposed; G60.3 Idiopathic progressive neuropathy; E66.9 Obesity, unspecified; I73.81 Erythromelalgia; M20.42 Other hammer toe(s) (acquired), left foot; M20.41 Other hammer toe(s) (acquired), right foot; R60.0 Localized edema | CPT/HCPCS: 11042; A6253; A6402 ==

== ENCOUNTER 2017-04-29 12:35 | Outpatient (CLI) | payer BC | END 2017-04-29 23:59 | disposition home or self-care (01) | LOC: WOU 12:35 | PROVIDERS: ATTEND Podiatrist Foot & Ankle Surgery | DX: T81.31XD Disruption of external operation (surgical) wound, not elsewhere classified, subsequent encounter (principal); L97.522 Non-pressure chronic ulcer of other part of left foot with fat layer exposed; M14.672 Charcot's joint, left ankle and foot; G60.3 Idiopathic progressive neuropathy; E66.9 Obesity, unspecified; I73.81 Erythromelalgia; M20.42 Other hammer toe(s) (acquired), left foot; M20.41 Other hammer toe(s) (acquired), right foot; R60.0 Localized edema; S91.311S Laceration without foreign body, right foot, sequela; X58.XXXS Exposure to other specified factors, sequela; L97.512 Non-pressure chronic ulcer of other part of right foot with fat layer exposed; I87.9 Disorder of vein, unspecified; Z68.29 Body mass index [BMI] 29.0-29.9, adult | CPT/HCPCS: 29445; 93925; 93970; A6253; A6402 ==

== ENCOUNTER → 2017-05-01 | Outpatient (CLI) | payer BC | END | disposition home or self-care (01) | LOC: WOU 14:00 | PROVIDERS: ATTEND Podiatrist Foot & Ankle Surgery | DX: T81.31XA Disruption of external operation (surgical) wound, not elsewhere classified, initial encounter (principal); G60.3 Idiopathic progressive neuropathy; L97.512 Non-pressure chronic ulcer of other part of right foot with fat layer exposed; L97.422 Non-pressure chronic ulcer of left heel and midfoot with fat layer exposed; I73.81 Erythromelalgia; M20.41 Other hammer toe(s) (acquired), right foot; M20.42 Other hammer toe(s) (acquired), left foot; R60.0 Localized edema; E66.9 Obesity, unspecified; Z68.29 Body mass index [BMI] 29.0-29.9, adult; Z71.3 Dietary counseling and surveillance; M14.672 Charcot's joint, left ankle and foot | CPT/HCPCS: 11042; A6253; A6402 ==

== ENCOUNTER 2017-05-05 13:05 | Outpatient (CLI) | payer BC | END 2017-05-05 23:59 | disposition home or self-care (01) | LOC: WOU 13:05 | PROVIDERS: ATTEND Podiatrist Foot & Ankle Surgery | DX: T81.31XA Disruption of external operation (surgical) wound, not elsewhere classified, initial encounter (principal); M14.672 Charcot's joint, left ankle and foot; G60.3 Idiopathic progressive neuropathy; L97.512 Non-pressure chronic ulcer of other part of right foot with fat layer exposed; S91.311S Laceration without foreign body, right foot, sequela; X58.XXXS Exposure to other specified factors, sequela; E66.9 Obesity, unspecified; I73.81 Erythromelalgia; M20.42 Other hammer toe(s) (acquired), left foot; M20.41 Other hammer toe(s) (acquired), right foot; R60.0 Localized edema; Z68.29 Body mass index [BMI] 29.0-29.9, adult | CPT/HCPCS: 29445; A6253; A6402; 11042 ==

== ENCOUNTER 2017-05-08 13:45 | Outpatient (CLI) | payer BC | END 2017-05-08 23:59 | disposition home or self-care (01) | LOC: WOU 13:45 | PROVIDERS: ATTEND Podiatrist Foot & Ankle Surgery | DX: T81.31XA Disruption of external operation (surgical) wound, not elsewhere classified, initial encounter (principal); G60.3 Idiopathic progressive neuropathy; L97.512 Non-pressure chronic ulcer of other part of right foot with fat layer exposed; M14.672 Charcot's joint, left ankle and foot; I73.81 Erythromelalgia; M20.42 Other hammer toe(s) (acquired), left foot; M20.41 Other hammer toe(s) (acquired), right foot; R60.0 Localized edema; I10 Essential (primary) hypertension | CPT/HCPCS: 11042; A6402; A6253 ==

== ENCOUNTER 2017-05-15 13:06 | Outpatient (CLI) | payer BC | END 2017-05-15 23:59 | disposition home or self-care (01) | LOC: WOU 13:06 | PROVIDERS: ATTEND Podiatrist Foot & Ankle Surgery | DX: T81.31XA Disruption of external operation (surgical) wound, not elsewhere classified, initial encounter (principal); L97.512 Non-pressure chronic ulcer of other part of right foot with fat layer exposed; M14.672 Charcot's joint, left ankle and foot; G60.3 Idiopathic progressive neuropathy; E66.9 Obesity, unspecified; I73.81 Erythromelalgia; R60.0 Localized edema; M20.42 Other hammer toe(s) (acquired), left foot; M20.41 Other hammer toe(s) (acquired), right foot | CPT/HCPCS: 11042; A6253; A6402 ==

== ENCOUNTER 2017-05-22 10:00 | Outpatient (CLI) | payer BC | END 2017-05-22 23:59 | disposition home or self-care (01) | LOC: WOU 10:00 | PROVIDERS: ATTEND Podiatrist Foot & Ankle Surgery | DX: T81.31XA Disruption of external operation (surgical) wound, not elsewhere classified, initial encounter (principal); L97.512 Non-pressure chronic ulcer of other part of right foot with fat layer exposed; L97.511 Non-pressure chronic ulcer of other part of right foot limited to breakdown of skin; F60.0 Paranoid personality disorder; M20.42 Other hammer toe(s) (acquired), left foot; M20.41 Other hammer toe(s) (acquired), right foot; I73.81 Erythromelalgia; M14.672 Charcot's joint, left ankle and foot; G60.3 Idiopathic progressive neuropathy; E66.9 Obesity, unspecified; Z68.29 Body mass index [BMI] 29.0-29.9, adult | CPT/HCPCS: 11042; A6253; A6402 ==

== ENCOUNTER 2017-05-29 13:14 | Outpatient (CLI) | payer BC | END 2017-05-29 23:59 | disposition home or self-care (01) | LOC: WOU 13:14 | PROVIDERS: ATTEND Podiatrist Foot & Ankle Surgery | DX: T81.31XA Disruption of external operation (surgical) wound, not elsewhere classified, initial encounter (principal); M14.672 Charcot's joint, left ankle and foot; E66.9 Obesity, unspecified; I73.81 Erythromelalgia; M20.42 Other hammer toe(s) (acquired), left foot; M20.41 Other hammer toe(s) (acquired), right foot; R60.0 Localized edema; G60.3 Idiopathic progressive neuropathy | CPT/HCPCS: 11042; A6253; A6402 ==

== ENCOUNTER 2017-06-05 13:45 | Outpatient (CLI) | payer BC | END 2017-06-05 23:59 | disposition home or self-care (01) | LOC: WOU 13:45 | PROVIDERS: ATTEND Podiatrist Foot & Ankle Surgery | DX: G60.3 Idiopathic progressive neuropathy (principal); M14.672 Charcot's joint, left ankle and foot; L97.511 Non-pressure chronic ulcer of other part of right foot limited to breakdown of skin; I73.81 Erythromelalgia; R60.0 Localized edema; M20.41 Other hammer toe(s) (acquired), right foot; M20.42 Other hammer toe(s) (acquired), left foot; E66.9 Obesity, unspecified; Z68.29 Body mass index [BMI] 29.0-29.9, adult | CPT/HCPCS: A6253; A6402 ==

== ENCOUNTER 2017-06-16 13:17 | Outpatient (CLI) | payer BC | END 2017-06-16 23:59 | disposition home or self-care (01) | LOC: WOU 13:17 | PROVIDERS: ATTEND Podiatrist Foot & Ankle Surgery | DX: L97.512 Non-pressure chronic ulcer of other part of right foot with fat layer exposed (principal); S91.11 Laceration without foreign body of toe without damage to nail; X58.XXXS Exposure to other specified factors, sequela; G60.3 Idiopathic progressive neuropathy; E66.9 Obesity, unspecified; Z68.29 Body mass index [BMI] 29.0-29.9, adult; M20.41 Other hammer toe(s) (acquired), right foot; R60.0 Localized edema; M20.42 Other hammer toe(s) (acquired), left foot; I73.81 Erythromelalgia; M14.672 Charcot's joint, left ankle and foot | CPT/HCPCS: 11042; 29445; A6253; A6402 ==

== ENCOUNTER 2017-06-23 11:42 | Outpatient (CLI) | payer BC | END 2017-06-23 23:59 | disposition home or self-care (01) | LOC: WOU 11:42 | PROVIDERS: ATTEND Podiatrist Foot & Ankle Surgery | DX: L97.512 Non-pressure chronic ulcer of other part of right foot with fat layer exposed (principal); S91.11 Laceration without foreign body of toe without damage to nail; X58.XXXS Exposure to other specified factors, sequela; M14.672 Charcot's joint, left ankle and foot; E66.9 Obesity, unspecified; G60.3 Idiopathic progressive neuropathy; I73.81 Erythromelalgia; M20.42 Other hammer toe(s) (acquired), left foot; M20.41 Other hammer toe(s) (acquired), right foot; R60.0 Localized edema; Z68.29 Body mass index [BMI] 29.0-29.9, adult | CPT/HCPCS: 29445; A6402 ==

== ENCOUNTER 2017-07-02 11:17 | Outpatient (CLI) | payer BC | END 2017-07-02 23:59 | disposition home or self-care (01) | LOC: WOU 11:17 | PROVIDERS: ATTEND Podiatrist Foot & Ankle Surgery | DX: L97.512 Non-pressure chronic ulcer of other part of right foot with fat layer exposed (principal); G60.3 Idiopathic progressive neuropathy; M14.672 Charcot's joint, left ankle and foot; E66.9 Obesity, unspecified; I73.81 Erythromelalgia; M20.41 Other hammer toe(s) (acquired), right foot; M20.42 Other hammer toe(s) (acquired), left foot; Z68.29 Body mass index [BMI] 29.0-29.9, adult; I10 Essential (primary) hypertension; Z82.3 Family history of stroke; Z82.49 Family history of ischemic heart disease and other diseases of the circulatory system | CPT/HCPCS: 11042; A6253; A6402 ==

== ENCOUNTER 2017-07-10 13:50 | Outpatient (CLI) | payer BC | END 2017-07-10 23:59 | disposition home or self-care (01) | LOC: WOU 13:50 | PROVIDERS: ATTEND Podiatrist Foot & Ankle Surgery | DX: L97.512 Non-pressure chronic ulcer of other part of right foot with fat layer exposed (principal); M14.672 Charcot's joint, left ankle and foot; G60.3 Idiopathic progressive neuropathy; E66.9 Obesity, unspecified; Z68.29 Body mass index [BMI] 29.0-29.9, adult; I73.81 Erythromelalgia; M20.42 Other hammer toe(s) (acquired), left foot; M20.41 Other hammer toe(s) (acquired), right foot; R60.0 Localized edema | CPT/HCPCS: 11042; A6253; A6402 ==

== ENCOUNTER 2017-07-17 13:55 | Outpatient (CLI) | payer BC | END 2017-07-17 23:59 | disposition home or self-care (01) | LOC: WOU 13:55 | PROVIDERS: ATTEND Podiatrist Foot & Ankle Surgery | DX: L97.512 Non-pressure chronic ulcer of other part of right foot with fat layer exposed (principal); M14.672 Charcot's joint, left ankle and foot; G60.3 Idiopathic progressive neuropathy; I73.81 Erythromelalgia; M20.41 Other hammer toe(s) (acquired), right foot; M20.42 Other hammer toe(s) (acquired), left foot; Z68.29 Body mass index [BMI] 29.0-29.9, adult; R60.0 Localized edema | CPT/HCPCS: 11042; A6253; A6402 ==

== ENCOUNTER 2017-07-21 14:30 | Outpatient (CLI) | payer BC ==
[2017-07-22] MEDS ORDERED: MEMA10TA PO (14:25)
== END 2017-07-21 23:59 | disposition home or self-care (01) ==
LOC: WOU 14:30
PROVIDERS: ATTEND Podiatrist Foot & Ankle Surgery
DX: L03.116 Cellulitis of left lower limb (principal); G60.3 Idiopathic progressive neuropathy; S91.311D Laceration without foreign body, right foot, subsequent encounter; M20.42 Other hammer toe(s) (acquired), left foot; M20.41 Other hammer toe(s) (acquired), right foot; I73.81 Erythromelalgia; E66.9 Obesity, unspecified; Z68.29 Body mass index [BMI] 29.0-29.9, adult; X58.XXXD Exposure to other specified factors, subsequent encounter; Y92.89 Other specified places as the place of occurrence of the external cause
CPT/HCPCS: 99214; A6402; G0463

== ENCOUNTER 2017-07-22 11:54 | Inpatient (IN) | payer BC ==
[~2017-07-22] VITALS: Ht 180.3 cm; Wt 108.9 kg
--- NOTE | 2017-07-22 12:07 | NUR ---
PT AMBULATORY TO ED BED 16 WITH A SCOOTER, A/O4, PT WAS SENT BY PMD, DR. BAE FOR EVAL OF INFECTED WOUND TO LEFT FOOT. PT HAD A SURGERY TO LEFT FOOT ON 03/09 DUE TO OSTEOMYELITIS. NAD VSS RR EVEN AND UNLABORED. KEPT WARM AND COMFORTABLE. WILL CONT TO MONITOR
[2017-07-22] MEDS ORDERED: VANCOMYCIN 1 GM in IV D5W 250 ML IV ONE (13:00)
[2017-07-22] MEDS ORDERED: MEROPENEM 1 G in IV NS 0.9% 100 ML IV ONE (13:00)
[2017-07-22] MEDS ORDERED: IV NS 0.9% 1,000 ML BAG IV ONE (13:00)
[2017-07-22 13:17] LABS: BASOPHILS # (AUTO) 0.1 /CMM (0.0-0.2); BASOPHILS % (AUTO) 0.7 % (0.0-2.0); EOSINOPHILS % (AUTO) 3.6 % (0.0-6.0); HEMATOCRIT 36 % (39-51); HEMOGLOBIN 12.4 g/dL (13.5-17.5); LYMPHOCYTES # (AUTO) 1.4 /CMM (0.8-4.8); LYMPHOCYTES % (AUTO) 17.9 % (20.0-44.0); MEAN CORPUSCULAR HGB CONC 35 g/dl (31.0-36.0); MEAN CORPUSCULAR VOLUME 91 fL (80-96); MONOCYTES # (AUTO) 0.5 /CMM (0.1-1.30); MONOCYTES % (AUTO) 6.7 % (2.0-12.0); NEUTROPHILS # (AUTO) 5.2 /CMM (1.8-8.9); NEUTROPHILS % (AUTO) 71.1 % (43.0-81.0); PLATELET COUNT (AUTO) 277 /CMM (150-450); RDW COEFFICIENT OF VARIATION 13.4 (11.5-15.0); RED BLOOD CELL COUNT(AUTO) 3.97 MIL/uL (4.5-6.0); WHITE BLOOD COUNT (AUTO) 7.6 K/uL (4.3-11.0)
[2017-07-22 13:31] LABS: INR 0.93 (0.85-1.15)
[2017-07-22 13:33] LABS: ALANINE AMINOTRANSFERASE 30 U/L (12-78); ALBUMIN 3.5 g/dL (3.4-5.0); ALKALINE PHOSPHATASE 87 U/L (46-116); ASPARTATE AMINOTRANSFERASE 27 U/L (15-37); BILIRUBIN,DIRECT 0.2 mg/dL (0.0-0.2); BILIRUBIN,TOTAL 0.4 mg/dL (0.2-1.0); CALCIUM, SERUM 9.2 mg/dL (8.5-10.1); CARBON DIOXIDE 31 mmol/L (21-32); CHLORIDE 104 mmol/L (98-107); CREATININE 1.3 mg/dL (0.6-1.3); GLUCOSE 130 mg/dL (74-106); POTASSIUM 3.9 mmol/L (3.5-5.1); SODIUM SERUM 140 mmol/L (136-145); TOTAL PROTEIN, SERUM 7.2 g/dL (6.4-8.2); UREA NITROGEN, BLOOD 18 mg/dL (7-18)
[2017-07-22 13:35] LABS: TROPONIN I < 0.017 ng/mL (0.00-0.056)
[2017-07-22] MEDS ORDERED: MEMA10TA PO (14:25)
--- NOTE | 2017-07-22 14:54 | NUR ---
REPORT GIVEN TO 207.2 MS
--- NOTE | 2017-07-22 15:07 | NUR ---
PT TRANSFERRED TO FLOOR IN STABLE CONDITION.
--- NOTE | 2017-07-22 15:15 | NUR ---
MS/RN New admission New admission from emergency room with left foot cellulitis. Patient is a known patient of Dr Lopez and was seen in the wound clinic yesterday was was asked to present to the ER for IVAB. Patient fully admitted, picture of left foot taken, refusing to have dressing on right foot third toe removed until seen by Dr Lopez. Awaiting admitting orders. Dr Lopez made aware that patient here in room.
[2017-07-22] MEDS ORDERED: ONDANSETRON HCL/PF 4 MG/2 ML VIAL IVP PRN (15:30)
[2017-07-22] MEDS ORDERED: hydrALAZINE HCL 25 MG TABLET PO PRN (15:30)
[2017-07-22] MEDS ORDERED: MAGNESIUM HYDROXIDE 30 ML UDC PO PRN (15:30)
[2017-07-22] MEDS ORDERED: HYDROCODONE/APAP 5/325MG 1 EACH TABLET PO PRN (15:30)
[2017-07-22] MEDS ORDERED: ACETAMINOPHEN 325 MG TABLET PO PRN (15:30)
[2017-07-22] MEDS ORDERED: MAG HYDROX/AL HYDROX/SIMETH 30 ML UDC PO PRN (15:30)
[2017-07-22] MEDS ORDERED: Z GUARD REMEDY 2 OZ OINT TP PRN (15:30)
[2017-07-22] MEDS ORDERED: FENTANYL PF 100MCG/2ML AMPUL IV PRN (15:30)
[2017-07-22] MEDS ORDERED: ZOLPIDEM TARTRATE 5 MG TABLET PO PRN (15:30)
[2017-07-22 16:00] VITALS: BP 136/83
[2017-07-22] MEDS ORDERED: FEE PK DOSING 1 MIN EA MC ONE (16:00)
[2017-07-22] MEDS: PREGABALIN 100 MG CAPSULE PO SCH (16:56)
[2017-07-22] MEDS: CEFTRIAXONE 1 G in IV D5W 50 ML IV SCH (16:56)
[2017-07-22] MEDS: MEMANTINE HCL 5 MG TABLET PO SCH (16:56)
[2017-07-22] MEDS ORDERED: METHADONE HCL 10 MG TABLET PO SCH (17:00)
--- NOTE | 2017-07-22 17:00 | NUR ---
MS/RN IVAB IVAB in progress, no signs of infiltration seen.
[2017-07-22] MEDS: ENOXAPARIN SODIUM 40 MG/0.4 ML DISP.SYRIN SQ SCH (17:11)
--- NOTE | 2017-07-22 18:43 | NUR ---
MS/RN End note Patient remains in stable condition, will endorse to animal husbandry professor.
--- NOTE | 2017-07-22 19:40 | NUR ---
MS RN NOTES RECEIVED ON BED A/O X4,BREATHING NORMAL,LEFT LOWER LEG REMAINS SWOLLEN AND WARM TO THE TOUCH.CONTINUE ELEVATION ON PILLOWS.DENIES PAIN AT THE MOMENT.SALINE LOCK LAC INTACT AND PATENT.CALL LIGHT IN REACH,NEEDS ANTICIPATED.
[2017-07-22 19:54] VITALS: BP 119/72
[2017-07-22 20:00] VITALS: BP 119/72
[2017-07-22] MEDS ORDERED: VANCOMYCIN 1.25 GM in IV NS 0.9% 500 ML IV SCH (21:00)
--- NOTE | 2017-07-23 03:00 | NUR ---
MS RN NOTES DUE VANCOMYCIN IVPB HUNG.
[2017-07-23] MEDS: VANCOMYCIN 1 GM in IV NS 0.9% 250 ML IV SCH ×2 (03:11→14:15)
--- NOTE | 2017-07-23 06:38 | NUR ---
MS RN NOTES NO COMPLAINTS OF PAIN THRU OUT SHIFT.ABLE TO AMBULATE WITH WALKER TO THE TOILET.CALL LIGHT IN REACH,NEEDS ATTENDED.WILL ENDORSE TO DAY NURSE FOR MICHELLE.
[2017-07-23 07:12] LABS: BASOPHILS % (AUTO) 0.5 % (0.0-2.0); EOSINOPHILS % (AUTO) 4.8 % (0.0-6.0); HEMATOCRIT 35 % (39-51); HEMOGLOBIN 12.3 g/dL (13.5-17.5); LYMPHOCYTES # (AUTO) 1.3 /CMM (0.8-4.8); LYMPHOCYTES % (AUTO) 19.6 % (20.0-44.0); MEAN CORPUSCULAR HGB CONC 35 g/dl (31.0-36.0); MEAN CORPUSCULAR VOLUME 91 fL (80-96); MONOCYTES # (AUTO) 0.5 /CMM (0.1-1.30); MONOCYTES % (AUTO) 8.3 % (2.0-12.0); NEUTROPHILS # (AUTO) 4.3 /CMM (1.8-8.9); NEUTROPHILS % (AUTO) 66.8 % (43.0-81.0); PLATELET COUNT (AUTO) 232 /CMM (150-450); RDW COEFFICIENT OF VARIATION 14.2 (11.5-15.0); RED BLOOD CELL COUNT(AUTO) 3.88 MIL/uL (4.5-6.0); WHITE BLOOD COUNT (AUTO) 6.5 K/uL (4.3-11.0)
[2017-07-23 07:50] LABS: CALCIUM, SERUM 8.6 mg/dL (8.5-10.1); CREATININE 1.2 mg/dL (0.6-1.3); MAGNESIUM 2.2 mg/dL (1.8-2.4); PHOSPHORUS 3.6 mg/dL (2.5-4.9); POTASSIUM 4.1 mmol/L (3.5-5.1)
[2017-07-23 08:00] VITALS: BP 109/57
--- NOTE | 2017-07-23 08:00 | NUR ---
M/S RN - Assessment Patient in bed, awake, A/O x 4, calm and cooperative with care, denies pain, not in any form of resp. distress. Saline lock on the LAC is patent, intact, with no signs of infiltration. Skin assessment done, left foot cellulitis elevated on pillows, right toe leave open to air for now, awaiting podiatry consult. Patient independent with bed mobility, ambulates with FWW. All needs attended and met. Fall precautions maintained. Will continue with current medical management.
[2017-07-23] MEDS: BUPROPION XL 150 MG TAB.ER.24 PO SCH (08:29)
[2017-07-23] MEDS: HYDROCHLOROTHIAZIDE 25 MG TABLET PO SCH (08:29)
[2017-07-23] MEDS: MEMANTINE HCL 5 MG TABLET PO SCH ×2 (08:29→16:28)
[2017-07-23] MEDS: PREGABALIN 100 MG CAPSULE PO SCH ×2 (08:29→16:28)
[2017-07-23 16:06] VITALS: BP 115/70
[2017-07-23] MEDS: LACTOBACILLUS RHAMNOSUS GG 1 EACH CAP.SPRINK PO SCH (16:28)
[2017-07-23] MEDS: CEFTRIAXONE 1 G in IV D5W 50 ML IV SCH (16:30)
--- NOTE | 2017-07-23 17:35 | NUR ---
Met with patient, he is alert and pleasant. He lives alone in the 1st floor apartment in [place]. Patient use his knee scooter with mobility. He is independent with adl's. He owns a walker, grab bars, shower bench and knee scooter, no homehealth reported. He will need taxi transportation once discharge. Addendum: 07/23/17 at 1736 by SHANTAL BETANCOURT RN Amended: Links added.
--- NOTE | 2017-07-23 18:49 | NUR ---
M/S RN - Notes No new events seen, denies pain, not in any form of distress. Will continue with current medical management.
--- NOTE | 2017-07-23 19:45 | NUR ---
MS RN NOTES AWAKE,SITTING ON EDGE OF BED,A/O X4,NO SOB,DENIES PAIN ON LEFT LOWER LEG.SWELLING APPEARS SUBSIDING NOTED.ENCOURAGED MORE TO ELEVATE LOWER LEG ON PILLOWS.SALINE LOCK RIGHT AC INTACT AND PATENT.CALL LIGHT IN REACH,NEEDS ANTICIPATED.
[2017-07-23 20:00] VITALS: BP 133/88
[2017-07-23] MEDS: METHADONE HCL 10 MG TABLET PO SCH (21:05)
[2017-07-23] MEDS: ENOXAPARIN SODIUM 40 MG/0.4 ML DISP.SYRIN SQ SCH (21:06)
--- NOTE | 2017-07-23 21:44 | NUR ---
MS DAVIS NOTES C/O CHRONIC PAIN ON HANDS AND FEETMDUE METAHDONE Addendum: 07/23/17 at 2148 by KONRAD BRICEÑO RN DUE METHADONE 20MG PO GIVEN SCHEDULED
--- NOTE | 2017-07-24 03:00 | NUR ---
MS RN NOTES DUE VANCOMYCIN DOSE IVPB HUNG.
[2017-07-24] MEDS: VANCOMYCIN 1 GM in IV NS 0.9% 250 ML IV SCH ×2 (03:03→15:21)
[2017-07-24 06:12] LABS: CALCIUM, SERUM 8.8 mg/dL (8.5-10.1); CREATININE 1.3 mg/dL (0.6-1.3); POTASSIUM 3.8 mmol/L (3.5-5.1)
--- NOTE | 2017-07-24 07:31 | NUR ---
MS RN NOTES NO SIGNIFICANT CHANGE IN STATUS.DENIES PAIN.AMBULATORY.LEFT LOWER LEG LESS SWOLLEN.IN NO ACUTE DISTRESS.ENDORSED TO TONI DAVIS FOR MICHELLE.
--- NOTE | 2017-07-24 07:32 | NUR ---
RN OPENING NOTES RECEIVED PATIENT IN BED RESTING. NO ACUTE DISTRESS, NO SOB. DENIED PAIN OR DISCOMFORT AT THE MOMENT. IV SITE INTACT AND PATENT. KEPT PATIENT SAFE AND COMFORTABLE. BED IN LOW/LOCKED POSITION, SIDERAILS UPX2, CALL LIGHT IN REACH, WILL CONTINUE TO MONITOR ACCORDINGLY.
--- NOTE | 2017-07-24 07:46 | NUR ---
WOUND CARE CONSULT WOUND CARE RECEIVED CONSULT FOR WOUND. WOUND CARE WILL DEFER CONSULT AND TREATMENT PLAN TO SURGICAL TEAM THEY ARE CURRENTLY FOLLOWING. PATIENT WITH CURRENT FUNMI AT 19.
[2017-07-24 08:00] VITALS: BP 128/68
[2017-07-24] MEDS: MEMANTINE HCL 5 MG TABLET PO SCH ×2 (08:57→16:37)
[2017-07-24] MEDS: LACTOBACILLUS RHAMNOSUS GG 1 EACH CAP.SPRINK PO SCH ×2 (08:57→16:37)
[2017-07-24] MEDS: PREGABALIN 100 MG CAPSULE PO SCH ×2 (08:58→16:37)
[2017-07-24] MEDS: HYDROCHLOROTHIAZIDE 25 MG TABLET PO SCH (08:58)
[2017-07-24] MEDS: BUPROPION XL 150 MG TAB.ER.24 PO SCH (08:58)
[2017-07-24] MEDS: METHADONE HCL 10 MG TABLET PO SCH ×2 (08:59→22:31)
[2017-07-24 09:41] VITALS: BP 128/68
[2017-07-24 16:22] VITALS: BP 125/77
[2017-07-24] MEDS: CEFTRIAXONE 1 G in IV D5W 50 ML IV SCH (16:33)
--- NOTE | 2017-07-24 19:20 | NUR ---
MS RN NOTES RECEIVED PT IN BED, AWAKE, A/O X 4. VERBALLY RESPONSIVE. NO DISTRESS, NO SOB NOTED. RESPIRATION IS EVEN AND UNLABORED. PT IS AMBULATORY WITH WALKER. LAC IV INTACT AND PATENT. NO S/S OF INFILTRATION NOTED. NO C/O PAIN OR DISCOMFORT AT THIS TIME. ALL NEEDS ATTENDED AND MET. SAFETY PRECAUTIONS OBSERVED. CALL LIGHT WITHIN REACH. WILL CONTINUE TO MONITOR.
--- NOTE | 2017-07-24 19:35 | NUR ---
RN CLOSING NOTES PATIENT IN STABLE CONDITION. ALL NEEDS ATTENDED AND PROVIDED. KEPT PATIENT SAFE AND COMFORTABLE. BED IN LOW/LOCKED POSITION, SIDERAILS UP, CALL LIGHT IN REACH. ENDORSED TO NIGHT RN FOR MICHELLE.
[2017-07-24 20:00] VITALS: BP 132/84
[2017-07-24 20:10] VITALS: BP 132/84
[2017-07-24] MEDS: ENOXAPARIN SODIUM 40 MG/0.4 ML DISP.SYRIN SQ SCH (22:32)
[2017-07-25] MEDS: VANCOMYCIN 1 GM in IV NS 0.9% 250 ML IV SCH ×2 (02:55→14:17)
--- NOTE | 2017-07-25 06:50 | NUR ---
MS RN NOTES PT IN BED, RESTING COMFORTABLY AT THIS TIME. A/O X 4. VERBALLY RESPONSIVE. NO DISTRESS, NO SOB NOTED. RESPIRATION IS EVEN AND UNLABORED. PT IS AMBULATORY WITH WALKER. LAC IV INTACT AND PATENT. NO S/S OF INFILTRATION NOTED. NO C/OF PAIN OR DISCOMFORT AT THIS TIME. ALL DUE MEDS GIVEN. ALL NEEDS ATTENDED AND MET. SAFETY PRECAUTIONS OBSERVED. CALL LIGHT WITHIN REACH. WILL ENDORSE TO NEXT SHIFT FOR MICHELLE.
[2017-07-25 07:03] LABS: CALCIUM, SERUM 8.9 mg/dL (8.5-10.1); CREATININE 1.4 mg/dL (0.6-1.3); POTASSIUM 3.9 mmol/L (3.5-5.1)
--- NOTE | 2017-07-25 07:20 | NUR ---
RN NOTES PATIENT A/OX3-4 ABLE TO VERBALIZE NEEDS, BREATHING EVEN AND UNLABORED, NO SOB NOTED, DENIES PAIN OR DISCOMFORT AT THIS TIME, CALL LIGHT WITHIN REACH, WILL CONTINUE TO MONITOR.
[2017-07-25 08:24] VITALS: BP 127/82
[2017-07-25] MEDS: PREGABALIN 100 MG CAPSULE PO SCH ×2 (09:14→16:24)
[2017-07-25] MEDS: LACTOBACILLUS RHAMNOSUS GG 1 EACH CAP.SPRINK PO SCH ×2 (09:14→16:24)
[2017-07-25] MEDS: MEMANTINE HCL 5 MG TABLET PO SCH ×2 (09:14→16:24)
[2017-07-25] MEDS: METHADONE HCL 10 MG TABLET PO SCH ×2 (09:14→21:14)
[2017-07-25] MEDS: HYDROCHLOROTHIAZIDE 25 MG TABLET PO SCH (09:14)
[2017-07-25] MEDS: BUPROPION XL 150 MG TAB.ER.24 PO SCH (09:14)
[2017-07-25 16:00] VITALS: BP 134/83
[2017-07-25] MEDS: CEFTRIAXONE 1 G in IV D5W 50 ML IV SCH (16:21)
--- NOTE | 2017-07-25 18:28 | NUR ---
RN NOTES PATIENT A/OX3-4 ABLE TO VERBALIZE NEEDS, BREATHING EVEN AND UNLABORED, NO SOB NOTED, DENIES PAIN AT THIS TIME, DR. BRANTLEY CAME AND PROVIDED WOUND TREATMENT, PHOTOS TAKEN AND PLACED IN CHART. BLE DRESSING C/D/I. WOUND SPECIMEN SENT. PATIENT'S SY PICC LINE PATENT AND FLUSHES WELL, ACCUCHECK DONE, NO S/SX OF HYPO OR HYPERGLYCEMIA NOTED AT THIS TIME. PATIENT ASSISTED TO COMMODE MULTIPLE TIMES. NO DISTRESS NOTED. ALL NEEDS ATTENDED AND MET, CALL LIGHT WITHIN REACH, WILL ENDORSE TO HOG HANDLER FOR MICHELLE. Addendum: 07/25/17 at 1831 by SHEILA INGRAM RN ADDENDUM: DISREGARD ENTRY, WRONG PATIENT.
--- NOTE | 2017-07-25 18:31 | NUR ---
RN NOTES PATIENT A/OX3-4 ABLE TO VERBALIZE NEEDS, BREATHING EVEN AND UNLABORED, NO SOB NOTED, DENIES PAIN OR DISCOMFORT AT THIS TIME, WOUND TREATMENT RENDERED, PIV ON LEFT FA PATENT AND FLUSHES WELL, ALL DUE MEDS GIVEN TOLERATED, NO DISTRESS NOTED. ALL NEEDS ATTENDED AND MET, CALL LIGHT WITHIN REACH, WILL ENDORSE TO SENIOR PL SQL DEVELOPER FOR MICHELLE.
--- NOTE | 2017-07-25 19:30 | NUR ---
MS RN NOTES RECEIVED PT SITTING UP BED, AWAKE, A/O X 4. VERBALLY RESPONSIVE. NO DISTRESS, NO SOB NOTED. RESPIRATION IS EVEN AND UNLABORED. PT IS AMBULATORY WITH WALKER. LFA IV INTACT AND PATENT. NO S/S OF INFILTRATION NOTED. NO C/O PAIN OR DISCOMFORT AT THIS TIME. ALL NEEDS ATTENDED AND MET. SAFETY PRECAUTIONS OBSERVED. CALL LIGHT WITHIN REACH. WILL CONTINUE TO MONITOR.
[2017-07-25 20:00] VITALS: BP 127/83
[2017-07-25] MEDS: ENOXAPARIN SODIUM 40 MG/0.4 ML DISP.SYRIN SQ SCH (21:13)
[2017-07-26] MEDS: VANCOMYCIN 1 GM in IV NS 0.9% 250 ML IV SCH (03:34)
--- NOTE | 2017-07-26 06:39 | NUR ---
MS RN NOTES PT RESTING IN BED,AROUSES EASILY. A/O X 4. VERBALLY RESPONSIVE. NO DISTRESS, NO SOB NOTED. RESPIRATION IS EVEN AND UNLABORED. PT IS AMBULATORY WITH WALKER. LFA IV INTACT AND PATENT. NO S/S OF INFILTRATION NOTED. NO C/O PAIN OR DISCOMFORT AT THIS TIME. ALL NEEDS ATTENDED AND MET. ALL DUE MEDS GIVEN. SAFETY PRECAUTIONS OBSERVED. CALL LIGHT WITHIN REACH. WILL ENDORSE TO NEXT SHIFT FOR MICHELLE.
[2017-07-26 07:20] LABS: CALCIUM, SERUM 8.7 mg/dL (8.5-10.1); CREATININE 1.3 mg/dL (0.6-1.3); POTASSIUM 3.8 mmol/L (3.5-5.1)
[2017-07-26 08:00] VITALS: BP 126/78
--- NOTE | 2017-07-26 08:27 | NUR ---
RN OPENING NOTES RECEIVED PT. SITTING UP IN BED, A&OX4. BREATHING UNLABORED, AND EVENLY ON ROOM AIR. NO S/S OF ACUTE DISTRESS. WALKER IS AT BEDSIDE. PT. HAS WOUND ON RIGHT FOOT, AND LEFT LEG CELLULITIS. BED IS IN LOWEST, AND LOCKED POSITION. 2 SIDE RAILS UP, AND INSTRUCTED PT. TO USE CALL LIGHT FOR ASSISTANCE. ALL NEEDS MET. WILL CONTINUE TO ASSESS AND MONITOR.
[2017-07-26] MEDS: PREGABALIN 100 MG CAPSULE PO SCH ×2 (09:16→17:01)
[2017-07-26] MEDS: LACTOBACILLUS RHAMNOSUS GG 1 EACH CAP.SPRINK PO SCH ×2 (09:16→17:01)
[2017-07-26] MEDS: HYDROCHLOROTHIAZIDE 25 MG TABLET PO SCH (09:16)
[2017-07-26] MEDS: MEMANTINE HCL 5 MG TABLET PO SCH ×2 (09:16→17:01)
[2017-07-26] MEDS: METHADONE HCL 10 MG TABLET PO SCH (09:18)
[2017-07-26] MEDS: BUPROPION XL 150 MG TAB.ER.24 PO SCH (09:21)
[2017-07-26 16:00] VITALS: BP 136/81
[2017-07-26] MEDS: CEFTRIAXONE 1 G in IV D5W 50 ML IV SCH (17:02)
--- NOTE | 2017-07-26 18:00 | NUR ---
LENS MOUNTER PT. WAS DISCHARGED IN MEDICALLY STABLE CONDITION. PT. LEFT IN AN UBER. BEFORE LEAVING PT. WAS PROVIDED DISCHARGE INSTRUCTIONS WITH EDUCATION, AND PT. VERBALIZED UNDERSTANDING. PT. SIGNED DISCHARGE PAPERS. BELONGINGS LIST WAS CHECKED, AND SIGNED. IV AND ID BAND WAS REMOVED WITHOUT COMPLICATIONS. PT. WAS GIVEN PRESCRIPTION WITH DISCHARGE PACKET, AND PRESCRIPTION WAS FAXED TO HIS PREFERRED PHARMACY. RIGHT SECOND TOE WOUND CARE WAS PROVIDED TODAY PER ORDERS. PICTURES WERE TAKEN AND PLACED IN CHART. ALL QUESTIONS WERE ANSWERED.
== END 2017-07-26 18:40 | disposition home or self-care (01) | DRG 603 ==
LOC: ER 11:55 → MEDSG2 14:42
PROVIDERS: ADMIT Internal Medicine; ATTEND Internal Medicine
DX: L03.116 Cellulitis of left lower limb (principal); G60.3 Idiopathic progressive neuropathy; L97.421 Non-pressure chronic ulcer of left heel and midfoot limited to breakdown of skin; M14.672 Charcot's joint, left ankle and foot; M89.9 Disorder of bone, unspecified; E78.5 Hyperlipidemia, unspecified; F32.9 Major depressive disorder, single episode, unspecified; I10 Essential (primary) hypertension; I25.10 Atherosclerotic heart disease of native coronary artery without angina pectoris; K21.9 Gastro-esophageal reflux disease without esophagitis; G89.29 Other chronic pain; S91.311D Laceration without foreign body, right foot, subsequent encounter; X58.XXXD Exposure to other specified factors, subsequent encounter; Z79.891 Long term (current) use of opiate analgesic
CPT/HCPCS: 36415; 71045-TC; 73630-TC; 80048-TC; 80076-TC; 80202-TC; 83605-TC; 83735-TC; 84100-TC; 84484-TC; 85025-TC; 85730-TC; 87040-TC; 87081-TC; 93971-TC; A4216; A4606; A6402; J0696; J1650; J2185; J3370; J7030; J7040; J7050; J7060; Z7610

== ENCOUNTER 2017-07-28 13:25 | Outpatient (CLI) | payer BC ==
[~2017-07-28 13:25] MED LIST changes: -ARMO250T2 PO; +MEMA10TA PO; -MODA200T22 PO
== END 2017-07-28 23:59 | disposition home or self-care (01) ==
LOC: WOU 13:25
PROVIDERS: ATTEND Podiatrist Foot & Ankle Surgery
DX: S91.312A Laceration without foreign body, left foot, initial encounter (principal); L03.116 Cellulitis of left lower limb; G60.3 Idiopathic progressive neuropathy; L97.522 Non-pressure chronic ulcer of other part of left foot with fat layer exposed; X58.XXXA Exposure to other specified factors, initial encounter; Y92.89 Other specified places as the place of occurrence of the external cause; E66.9 Obesity, unspecified; I73.81 Erythromelalgia; M20.42 Other hammer toe(s) (acquired), left foot; M20.41 Other hammer toe(s) (acquired), right foot; R60.0 Localized edema; M14.672 Charcot's joint, left ankle and foot
CPT/HCPCS: 11042; A6402

== ENCOUNTER 2017-07-31 13:47 | Outpatient (CLI) | payer BC | END 2017-07-31 23:59 | disposition home or self-care (01) | LOC: WOU 13:47 | PROVIDERS: ATTEND Podiatrist Foot & Ankle Surgery | DX: S91.312A Laceration without foreign body, left foot, initial encounter (principal); L97.522 Non-pressure chronic ulcer of other part of left foot with fat layer exposed; L97.429 Non-pressure chronic ulcer of left heel and midfoot with unspecified severity; M14.672 Charcot's joint, left ankle and foot; G60.3 Idiopathic progressive neuropathy; E66.9 Obesity, unspecified; Z68.29 Body mass index [BMI] 29.0-29.9, adult; I73.81 Erythromelalgia; M20.42 Other hammer toe(s) (acquired), left foot; M20.41 Other hammer toe(s) (acquired), right foot; R60.0 Localized edema; X58.XXXA Exposure to other specified factors, initial encounter; Y92.89 Other specified places as the place of occurrence of the external cause | CPT/HCPCS: 11042; 97597; A6209; A6402 ==

== ENCOUNTER 2017-08-05 13:50 | Outpatient (CLI) | payer BC ==
[2017-08-05 13:55] VITALS: BP 109/76
== END 2017-08-05 23:59 | disposition home or self-care (01) ==
LOC: MSC 13:50
PROVIDERS: ATTEND Internal Medicine
DX: L97.529 Non-pressure chronic ulcer of other part of left foot with unspecified severity (principal); G62.9 Polyneuropathy, unspecified; A52.16 Charcot's arthropathy (tabetic); I10 Essential (primary) hypertension; E78.5 Hyperlipidemia, unspecified; G89.4 Chronic pain syndrome; F32.9 Major depressive disorder, single episode, unspecified; Z79.891 Long term (current) use of opiate analgesic

== ENCOUNTER 2017-08-07 13:42 | Outpatient (CLI) | payer BC | END 2017-08-07 23:59 | disposition home or self-care (01) | LOC: WOU 13:42 | PROVIDERS: ATTEND Podiatrist Foot & Ankle Surgery | DX: L97.522 Non-pressure chronic ulcer of other part of left foot with fat layer exposed (principal); L97.511 Non-pressure chronic ulcer of other part of right foot limited to breakdown of skin; S91.312D Laceration without foreign body, left foot, subsequent encounter; M14.672 Charcot's joint, left ankle and foot; G60.3 Idiopathic progressive neuropathy; E66.9 Obesity, unspecified; Z68.30 Body mass index [BMI] 30.0-30.9, adult; I73.81 Erythromelalgia; M20.42 Other hammer toe(s) (acquired), left foot; M20.41 Other hammer toe(s) (acquired), right foot; R60.0 Localized edema; Y92.89 Other specified places as the place of occurrence of the external cause; X58.XXXD Exposure to other specified factors, subsequent encounter | CPT/HCPCS: 11042; A6209; A6253; A6402 ==

== ENCOUNTER 2017-08-14 13:35 | Outpatient (CLI) | payer BC | END 2017-08-14 23:59 | disposition home or self-care (01) | LOC: WOU 13:35 | PROVIDERS: ATTEND Podiatrist Foot & Ankle Surgery | DX: S91.312A Laceration without foreign body, left foot, initial encounter (principal); X58.XXXA Exposure to other specified factors, initial encounter; Y92.89 Other specified places as the place of occurrence of the external cause; M14.672 Charcot's joint, left ankle and foot; M14.671 Charcot's joint, right ankle and foot; G60.3 Idiopathic progressive neuropathy; E66.9 Obesity, unspecified; I73.81 Erythromelalgia; M20.42 Other hammer toe(s) (acquired), left foot; M20.41 Other hammer toe(s) (acquired), right foot; R60.0 Localized edema; L97.511 Non-pressure chronic ulcer of other part of right foot limited to breakdown of skin | CPT/HCPCS: 11042; A6209; A6253; A6402 ==

== ENCOUNTER 2017-08-25 13:35 | Outpatient (CLI) | payer BC | END 2017-08-25 23:59 | disposition home or self-care (01) | LOC: WOU 13:35 | PROVIDERS: ATTEND Podiatrist Foot & Ankle Surgery | DX: L97.512 Non-pressure chronic ulcer of other part of right foot with fat layer exposed (principal); G60.3 Idiopathic progressive neuropathy; E66.9 Obesity, unspecified; Z68.30 Body mass index [BMI] 30.0-30.9, adult; I73.81 Erythromelalgia; R60.0 Localized edema; M20.42 Other hammer toe(s) (acquired), left foot; M20.41 Other hammer toe(s) (acquired), right foot; M14.672 Charcot's joint, left ankle and foot; S91.115A Laceration without foreign body of left lesser toe(s) without damage to nail, initial encounter; X58.XXXA Exposure to other specified factors, initial encounter; Y92.89 Other specified places as the place of occurrence of the external cause | CPT/HCPCS: 11042; A6209; A6253; A6402 ==

== ENCOUNTER 2017-09-01 13:35 | Outpatient (CLI) | payer BC | END 2017-09-01 23:59 | disposition home or self-care (01) | LOC: WOU 13:35 | PROVIDERS: ATTEND Podiatrist Foot & Ankle Surgery | DX: L97.512 Non-pressure chronic ulcer of other part of right foot with fat layer exposed (principal); G60.3 Idiopathic progressive neuropathy; S91.312A Laceration without foreign body, left foot, initial encounter; X58.XXXA Exposure to other specified factors, initial encounter; Y92.89 Other specified places as the place of occurrence of the external cause; M20.42 Other hammer toe(s) (acquired), left foot; M20.41 Other hammer toe(s) (acquired), right foot; R60.0 Localized edema; I73.81 Erythromelalgia; E66.9 Obesity, unspecified; Z68.30 Body mass index [BMI] 30.0-30.9, adult; M14.672 Charcot's joint, left ankle and foot | CPT/HCPCS: 11042; A6209; A6253; A6402 ==

== ENCOUNTER 2017-09-08 13:35 | Outpatient (CLI) | payer BC | END 2017-09-08 23:59 | disposition home or self-care (01) | LOC: WOU 13:35 | PROVIDERS: ATTEND Podiatrist Foot & Ankle Surgery | DX: S91.312A Laceration without foreign body, left foot, initial encounter (principal); X58.XXXA Exposure to other specified factors, initial encounter; Y92.89 Other specified places as the place of occurrence of the external cause; L97.512 Non-pressure chronic ulcer of other part of right foot with fat layer exposed; G60.3 Idiopathic progressive neuropathy; I73.81 Erythromelalgia; M20.41 Other hammer toe(s) (acquired), right foot; M20.42 Other hammer toe(s) (acquired), left foot; E66.9 Obesity, unspecified; M14.672 Charcot's joint, left ankle and foot | CPT/HCPCS: 11042; A6209; A6253; A6402; Z7610 ==

== ENCOUNTER 2017-09-15 13:35 | Outpatient (CLI) | payer BC | END 2017-09-15 23:59 | disposition home or self-care (01) | LOC: WOU 13:35 | PROVIDERS: ATTEND Podiatrist Foot & Ankle Surgery | DX: L97.522 Non-pressure chronic ulcer of other part of left foot with fat layer exposed (principal); S91.312D Laceration without foreign body, left foot, subsequent encounter; X58.XXXD Exposure to other specified factors, subsequent encounter; M14.672 Charcot's joint, left ankle and foot; G60.3 Idiopathic progressive neuropathy; E66.9 Obesity, unspecified; I73.81 Erythromelalgia; M20.42 Other hammer toe(s) (acquired), left foot; M20.41 Other hammer toe(s) (acquired), right foot; R60.0 Localized edema; Z68.30 Body mass index [BMI] 30.0-30.9, adult | CPT/HCPCS: 11042; A6209; A6253; A6402; Z7610 ==

== ENCOUNTER 2017-09-22 12:58 | Outpatient (CLI) | payer BC | END 2017-09-22 23:59 | disposition home or self-care (01) | LOC: WOU 12:58 | PROVIDERS: ATTEND Podiatrist Foot & Ankle Surgery | DX: L97.512 Non-pressure chronic ulcer of other part of right foot with fat layer exposed (principal); G60.3 Idiopathic progressive neuropathy; M14.672 Charcot's joint, left ankle and foot; M20.42 Other hammer toe(s) (acquired), left foot; M20.41 Other hammer toe(s) (acquired), right foot; E66.9 Obesity, unspecified; I73.81 Erythromelalgia; Z68.30 Body mass index [BMI] 30.0-30.9, adult | CPT/HCPCS: 11042; A6253; A6402; Z7610 ==

== ENCOUNTER 2017-10-02 13:16 | Outpatient (CLI) | payer BC ==
[2017-10-02 13:39] VITALS: BP 133/75
== END 2017-10-02 23:59 | disposition home or self-care (01) ==
LOC: MSC 13:16
PROVIDERS: ATTEND Internal Medicine
DX: Z01.818 Encounter for other preprocedural examination (principal); A52.16 Charcot's arthropathy (tabetic); L97.529 Non-pressure chronic ulcer of other part of left foot with unspecified severity; G62.9 Polyneuropathy, unspecified; G89.4 Chronic pain syndrome; Z79.891 Long term (current) use of opiate analgesic; I10 Essential (primary) hypertension; E78.5 Hyperlipidemia, unspecified; F32.9 Major depressive disorder, single episode, unspecified; E66.9 Obesity, unspecified

== ENCOUNTER 2017-10-06 13:50 | Outpatient (CLI) | payer BC | END 2017-10-06 23:59 | disposition home or self-care (01) | LOC: WOU 13:50 | PROVIDERS: ATTEND Podiatrist Foot & Ankle Surgery | DX: L97.512 Non-pressure chronic ulcer of other part of right foot with fat layer exposed (principal); G60.3 Idiopathic progressive neuropathy; M14.672 Charcot's joint, left ankle and foot; M20.41 Other hammer toe(s) (acquired), right foot; M20.42 Other hammer toe(s) (acquired), left foot; I73.81 Erythromelalgia; E66.9 Obesity, unspecified; Z68.30 Body mass index [BMI] 30.0-30.9, adult; I10 Essential (primary) hypertension | CPT/HCPCS: 29445; A6253; A6402; Z7610 ==

== ENCOUNTER 2017-10-08 16:05 | Outpatient (CLI) | payer BC ==
[2017-10-08 16:45] LABS: BASOPHILS % (AUTO) 0.6 % (0.0-2.0); EOSINOPHILS % (AUTO) 3.5 % (0.0-6.0); HEMATOCRIT 38 % (39-51); HEMOGLOBIN 13.1 g/dL (13.5-17.5); LYMPHOCYTES # (AUTO) 1.4 /CMM (0.8-4.8); LYMPHOCYTES % (AUTO) 21.4 % (20.0-44.0); MEAN CORPUSCULAR HEMOGLOBIN 32 PG (26.0-33.0); MEAN CORPUSCULAR HGB CONC 34 g/dl (31.0-36.0); MEAN CORPUSCULAR VOLUME 93 fL (80-96); MONOCYTES # (AUTO) 0.6 /CMM (0.1-1.30); MONOCYTES % (AUTO) 8.6 % (2.0-12.0); NEUTROPHILS # (AUTO) 4.3 /CMM (1.8-8.9); NEUTROPHILS % (AUTO) 65.9 % (43.0-81.0); PLATELET COUNT (AUTO) 285 /CMM (150-450); RDW COEFFICIENT OF VARIATION 14.6 (11.5-15.0); WHITE BLOOD COUNT (AUTO) 6.5 K/uL (4.3-11.0)
[2017-10-08 17:22] LABS: INR 0.95 (0.87-1.13)
[2017-10-08 17:23] LABS: CALCIUM, SERUM 8.9 mg/dL (8.5-10.1); CREATININE 1.5 mg/dL (0.6-1.3); POTASSIUM 4.1 mmol/L (3.5-5.1)
== END 2017-10-08 23:59 | disposition home or self-care (01) ==
LOC: LAB 16:05
PROVIDERS: ATTEND Podiatrist Foot & Ankle Surgery
DX: M20.41 Other hammer toe(s) (acquired), right foot (principal); L97.511 Non-pressure chronic ulcer of other part of right foot limited to breakdown of skin
CPT/HCPCS: 36415; 73630-TC; 80048-TC; 85025-TC; 85730-TC

== ENCOUNTER 2017-10-13 13:21 | Outpatient (CLI) | payer BC ==
--- NOTE | 2017-10-17 07:30 | NUR ---
MS RN NOTE - Admit for Day Surgery Patient arrived to unit scheduled for day surgery. Patient is AAOx4. Surgery consent, consent for anesthesia, and consent for blood transfusion were all signed by patient and witnessed. Vitals signs were obtained and WNL. Patient belongings were accounted for; patient signed Belongings List. Surgery Checklist was completed. EYAD Gay, inserted 20g IV in the left forearm. Patient care was endorsed to day shift nurse, Victor Hugo, prior to patient's transfer to surgery.
== END 2017-10-13 23:59 | disposition home or self-care (01) ==
LOC: WOU 13:21
PROVIDERS: ATTEND Podiatrist Foot & Ankle Surgery
DX: G60.3 Idiopathic progressive neuropathy (principal); M14.672 Charcot's joint, left ankle and foot; I73.81 Erythromelalgia; M20.42 Other hammer toe(s) (acquired), left foot; M20.41 Other hammer toe(s) (acquired), right foot; E66.9 Obesity, unspecified; Z68.30 Body mass index [BMI] 30.0-30.9, adult; R60.0 Localized edema; I10 Essential (primary) hypertension
CPT/HCPCS: A6253; A6402

== ENCOUNTER 2017-10-23 13:55 | Outpatient (CLI) | payer BC ==
[~2017-10-23 13:55] MED LIST changes: +BUPIVACAINE MPF 0.75% 30 ML VIAL ONE; +MIDAZOLAM HCL 2 MG/2ML VIAL ONE
== END 2017-10-23 23:59 | disposition home or self-care (01) ==
LOC: WOU 13:55
PROVIDERS: ATTEND Podiatrist Foot & Ankle Surgery
DX: Z47.89 Encounter for other orthopedic aftercare (principal); M14.672 Charcot's joint, left ankle and foot; G60.3 Idiopathic progressive neuropathy; E66.9 Obesity, unspecified; I73.81 Erythromelalgia; M20.41 Other hammer toe(s) (acquired), right foot; M20.42 Other hammer toe(s) (acquired), left foot; R60.0 Localized edema; Z80.0 Family history of malignant neoplasm of digestive organs; Z81.1 Family history of alcohol abuse and dependence; Z82.3 Family history of stroke; Z82.5 Family history of asthma and other chronic lower respiratory diseases
CPT/HCPCS: 29445; A6253; A6402; Z7610; J2250; J3490

== ENCOUNTER 2017-10-30 14:00 | Outpatient (CLI) | payer BC ==
[~2017-10-30 14:00] MED LIST changes: -BUPIVACAINE MPF 0.75% 30 ML VIAL ONE; -MIDAZOLAM HCL 2 MG/2ML VIAL ONE
== END 2017-10-30 23:59 | disposition home or self-care (01) ==
LOC: WOU 14:00
PROVIDERS: ATTEND Podiatrist Foot & Ankle Surgery
DX: M14.672 Charcot's joint, left ankle and foot (principal); G60.3 Idiopathic progressive neuropathy; T81.31XD Disruption of external operation (surgical) wound, not elsewhere classified, subsequent encounter; E66.9 Obesity, unspecified; I73.81 Erythromelalgia; R60.0 Localized edema; M20.42 Other hammer toe(s) (acquired), left foot; M20.41 Other hammer toe(s) (acquired), right foot
CPT/HCPCS: 29445; A6253; A6402; Z7610

== ENCOUNTER 2017-11-06 13:40 | Outpatient (CLI) | payer BC | END 2017-11-06 23:59 | disposition home or self-care (01) | LOC: WOU 13:40 | PROVIDERS: ATTEND Podiatrist Foot & Ankle Surgery | DX: S91.114A Laceration without foreign body of right lesser toe(s) without damage to nail, initial encounter (principal); X58.XXXA Exposure to other specified factors, initial encounter; Y92.89 Other specified places as the place of occurrence of the external cause; M20.41 Other hammer toe(s) (acquired), right foot; M02.0 Arthropathy following intestinal bypass; E66.9 Obesity, unspecified; I73.81 Erythromelalgia; M14.672 Charcot's joint, left ankle and foot; T81.31XD Disruption of external operation (surgical) wound, not elsewhere classified, subsequent encounter; Z68.30 Body mass index [BMI] 30.0-30.9, adult; Z79.891 Long term (current) use of opiate analgesic | CPT/HCPCS: 11042; 29445; A6253; A6402; Z7610 ==

== ENCOUNTER 2017-11-13 14:00 | Outpatient (CLI) | payer BC | END 2017-11-13 23:59 | disposition home or self-care (01) | LOC: WOU 14:00 | PROVIDERS: ATTEND Podiatrist Foot & Ankle Surgery | DX: T81.31XA Disruption of external operation (surgical) wound, not elsewhere classified, initial encounter (principal); S91.11 Laceration without foreign body of toe without damage to nail; X58.XXXS Exposure to other specified factors, sequela; E66.9 Obesity, unspecified; M14.672 Charcot's joint, left ankle and foot; G60.3 Idiopathic progressive neuropathy; I73.81 Erythromelalgia; M20.41 Other hammer toe(s) (acquired), right foot; M20.42 Other hammer toe(s) (acquired), left foot; R60.0 Localized edema; Z80.9 Family history of malignant neoplasm, unspecified; Z82.3 Family history of stroke; Z82.49 Family history of ischemic heart disease and other diseases of the circulatory system | CPT/HCPCS: 11042; A6253; A6402; Z7610 ==

== ENCOUNTER 2017-11-20 13:35 | Outpatient (CLI) | payer BC | END 2017-11-20 23:59 | disposition home or self-care (01) | LOC: WOU 13:35 | PROVIDERS: ATTEND Podiatrist Foot & Ankle Surgery | DX: S91.011A Laceration without foreign body, right ankle, initial encounter (principal); X58.XXXA Exposure to other specified factors, initial encounter; Y92.89 Other specified places as the place of occurrence of the external cause; S91.114D Laceration without foreign body of right lesser toe(s) without damage to nail, subsequent encounter; X58.XXXD Exposure to other specified factors, subsequent encounter; I83.891 Varicose veins of right lower extremity with other complications; M14.672 Charcot's joint, left ankle and foot; M14.671 Charcot's joint, right ankle and foot; I73.81 Erythromelalgia; M20.42 Other hammer toe(s) (acquired), left foot; M20.41 Other hammer toe(s) (acquired), right foot; G60.3 Idiopathic progressive neuropathy; T81.31XD Disruption of external operation (surgical) wound, not elsewhere classified, subsequent encounter; E66.9 Obesity, unspecified | CPT/HCPCS: A6253; A6402; G0463; Z7610 ==

== ENCOUNTER 2017-11-27 14:10 | Outpatient (CLI) | payer BC | END 2017-11-27 23:59 | disposition home or self-care (01) | LOC: WOU 14:10 | PROVIDERS: ATTEND Podiatrist Foot & Ankle Surgery | DX: T81.31XD Disruption of external operation (surgical) wound, not elsewhere classified, subsequent encounter (principal); S91.011D Laceration without foreign body, right ankle, subsequent encounter; X58.XXXD Exposure to other specified factors, subsequent encounter; M14.672 Charcot's joint, left ankle and foot; G60.3 Idiopathic progressive neuropathy; E66.9 Obesity, unspecified; I73.81 Erythromelalgia; R60.0 Localized edema; I83.92 Asymptomatic varicose veins of left lower extremity | CPT/HCPCS: A6253; A6402; G0463; Z7610 ==

== ENCOUNTER 2017-12-08 13:50 | Outpatient (CLI) | payer BC | END 2017-12-08 23:59 | disposition home or self-care (01) | LOC: WOU 13:50 | PROVIDERS: ATTEND Podiatrist Foot & Ankle Surgery | DX: S91.312D Laceration without foreign body, left foot, subsequent encounter (principal); X58.XXXD Exposure to other specified factors, subsequent encounter; G60.3 Idiopathic progressive neuropathy; L03.116 Cellulitis of left lower limb; T81.31XD Disruption of external operation (surgical) wound, not elsewhere classified, subsequent encounter; E66.9 Obesity, unspecified; I73.81 Erythromelalgia; M20.42 Other hammer toe(s) (acquired), left foot; M20.41 Other hammer toe(s) (acquired), right foot; R60.0 Localized edema; M14.672 Charcot's joint, left ankle and foot | CPT/HCPCS: 29445; A6209; A6253; A6402; Z7610 ==

== ENCOUNTER 2017-12-15 13:30 | Outpatient (CLI) | payer BC | END 2017-12-15 23:59 | disposition home or self-care (01) | LOC: WOU 13:30 | PROVIDERS: ATTEND Podiatrist Foot & Ankle Surgery | DX: T81.31XD Disruption of external operation (surgical) wound, not elsewhere classified, subsequent encounter (principal); S91.312A Laceration without foreign body, left foot, initial encounter; X58.XXXA Exposure to other specified factors, initial encounter; Y92.89 Other specified places as the place of occurrence of the external cause; M14.672 Charcot's joint, left ankle and foot; G60.3 Idiopathic progressive neuropathy; E66.9 Obesity, unspecified; I73.81 Erythromelalgia; R60.0 Localized edema; M20.42 Other hammer toe(s) (acquired), left foot; M20.41 Other hammer toe(s) (acquired), right foot | CPT/HCPCS: 11042; A6209; A6253; A6402; Z7610 ==

== ENCOUNTER 2017-12-22 14:15 | Outpatient (CLI) | payer BC | END 2017-12-22 23:59 | disposition home or self-care (01) | LOC: WOU 14:15 | PROVIDERS: ATTEND Podiatrist Foot & Ankle Surgery | DX: T81.31XA Disruption of external operation (surgical) wound, not elsewhere classified, initial encounter (principal); S91.312A Laceration without foreign body, left foot, initial encounter; X58.XXXA Exposure to other specified factors, initial encounter; Y93.89 Activity, other specified; Y92.89 Other specified places as the place of occurrence of the external cause; M14.672 Charcot's joint, left ankle and foot; G60.3 Idiopathic progressive neuropathy; E66.9 Obesity, unspecified; Z68.30 Body mass index [BMI] 30.0-30.9, adult; I73.81 Erythromelalgia; M20.41 Other hammer toe(s) (acquired), right foot; M20.42 Other hammer toe(s) (acquired), left foot; F32.9 Major depressive disorder, single episode, unspecified | CPT/HCPCS: 11042; A6209; A6253; A6402; Z7610 ==

== ENCOUNTER 2017-12-29 13:34 | Outpatient (CLI) | payer BC | END 2017-12-29 23:59 | disposition home or self-care (01) | LOC: WOU 13:34 | PROVIDERS: ATTEND Podiatrist Foot & Ankle Surgery | DX: T81.31XA Disruption of external operation (surgical) wound, not elsewhere classified, initial encounter (principal); S91.312A Laceration without foreign body, left foot, initial encounter; M14.672 Charcot's joint, left ankle and foot; G60.3 Idiopathic progressive neuropathy; I73.81 Erythromelalgia; E66.9 Obesity, unspecified; Z68.30 Body mass index [BMI] 30.0-30.9, adult; R60.0 Localized edema; M20.42 Other hammer toe(s) (acquired), left foot; M20.41 Other hammer toe(s) (acquired), right foot; X58.XXXA Exposure to other specified factors, initial encounter; Y93.89 Activity, other specified; Y92.89 Other specified places as the place of occurrence of the external cause | CPT/HCPCS: 11042; A6209; A6253; A6402; Z7610 ==

== ENCOUNTER 2018-01-05 13:30 | Outpatient (CLI) | payer BC ==
[~2018-01-05 13:30] MED LIST changes: -CAND32TA2 PO; +CAND32TA20 PO
== END 2018-01-05 23:59 | disposition home or self-care (01) ==
LOC: WOU 13:30
PROVIDERS: ATTEND Podiatrist Foot & Ankle Surgery
DX: S91.312A Laceration without foreign body, left foot, initial encounter (principal); X58.XXXA Exposure to other specified factors, initial encounter; Y93.89 Activity, other specified; Y92.89 Other specified places as the place of occurrence of the external cause; T81.31XD Disruption of external operation (surgical) wound, not elsewhere classified, subsequent encounter; M14.672 Charcot's joint, left ankle and foot; G60.3 Idiopathic progressive neuropathy; E66.9 Obesity, unspecified; Z68.30 Body mass index [BMI] 30.0-30.9, adult; I73.81 Erythromelalgia; L60.0 Ingrowing nail; M20.42 Other hammer toe(s) (acquired), left foot; M20.41 Other hammer toe(s) (acquired), right foot; I10 Essential (primary) hypertension
CPT/HCPCS: 11042; A6209; A6253; A6402; Z7610

== ENCOUNTER 2018-01-12 13:30 | Outpatient (CLI) | payer BC | END 2018-01-12 23:59 | disposition home or self-care (01) | LOC: WOU 13:30 | PROVIDERS: ATTEND Podiatrist Foot & Ankle Surgery | DX: S91.312A Laceration without foreign body, left foot, initial encounter (principal); T81.31XD Disruption of external operation (surgical) wound, not elsewhere classified, subsequent encounter; M14.672 Charcot's joint, left ankle and foot; G60.3 Idiopathic progressive neuropathy; M20.41 Other hammer toe(s) (acquired), right foot; M20.42 Other hammer toe(s) (acquired), left foot; E66.9 Obesity, unspecified; Z68.30 Body mass index [BMI] 30.0-30.9, adult; I73.81 Erythromelalgia; R60.0 Localized edema; Y92.89 Other specified places as the place of occurrence of the external cause; X58.XXXA Exposure to other specified factors, initial encounter | CPT/HCPCS: 11042; A6209; A6253; A6402; Z7610 ==

== ENCOUNTER 2018-03-09 13:50 | Outpatient (CLI) | payer BC | END 2018-03-09 23:59 | disposition home or self-care (01) | LOC: WOU 13:50 | PROVIDERS: ATTEND Podiatrist Foot & Ankle Surgery | DX: S91.312A Laceration without foreign body, left foot, initial encounter (principal); G60.3 Idiopathic progressive neuropathy; M14.672 Charcot's joint, left ankle and foot; I73.81 Erythromelalgia; E66.9 Obesity, unspecified; Z68.30 Body mass index [BMI] 30.0-30.9, adult; M20.41 Other hammer toe(s) (acquired), right foot; M20.42 Other hammer toe(s) (acquired), left foot; R60.0 Localized edema; X58.XXXA Exposure to other specified factors, initial encounter; Y92.89 Other specified places as the place of occurrence of the external cause | CPT/HCPCS: 11042; A6209; A6402; Z7610 ==

== ENCOUNTER 2018-03-12 11:45 | Outpatient (CLI) | payer BC | END 2018-03-12 23:59 | disposition home or self-care (01) | LOC: WOU 11:45 | PROVIDERS: ATTEND Podiatrist Foot & Ankle Surgery | DX: S91.312D Laceration without foreign body, left foot, subsequent encounter (principal); X58.XXXD Exposure to other specified factors, subsequent encounter; G60.3 Idiopathic progressive neuropathy; E66.9 Obesity, unspecified; I73.81 Erythromelalgia; M14.672 Charcot's joint, left ankle and foot; L30.9 Dermatitis, unspecified; M20.42 Other hammer toe(s) (acquired), left foot; M20.41 Other hammer toe(s) (acquired), right foot; R60.0 Localized edema; Z68.30 Body mass index [BMI] 30.0-30.9, adult | CPT/HCPCS: A6209; A6402; Z7610 ==

== ENCOUNTER 2018-03-19 13:45 | Outpatient (CLI) | END 2018-03-19 23:59 | disposition home or self-care (01) | DX: M14.672 Charcot's joint, left ankle and foot (principal); E66.9 Obesity, unspecified; Z68.30 Body mass index [BMI] 30.0-30.9, adult; I73.81 Erythromelalgia; M20.42 Other hammer toe(s) (acquired), left foot; M20.41 Other hammer toe(s) (acquired), right foot; R60.0 Localized edema; Z82.49 Family history of ischemic heart disease and other diseases of the circulatory system; Z82.61 Family history of arthritis; Z81.8 Family history of other mental and behavioral disorders ==

== ENCOUNTER 2018-03-30 13:45 | Outpatient (CLI) | payer BC | END 2018-03-30 23:59 | disposition home or self-care (01) | LOC: WOU 13:45 | PROVIDERS: ATTEND Podiatrist Foot & Ankle Surgery | DX: M14.672 Charcot's joint, left ankle and foot (principal); G60.3 Idiopathic progressive neuropathy; I73.81 Erythromelalgia; M20.41 Other hammer toe(s) (acquired), right foot; M20.42 Other hammer toe(s) (acquired), left foot; R60.0 Localized edema; E66.9 Obesity, unspecified; Z68.30 Body mass index [BMI] 30.0-30.9, adult; I10 Essential (primary) hypertension ==

== ENCOUNTER 2018-04-13 12:50 | Outpatient (CLI) | payer BC | END 2018-04-13 23:59 | disposition home or self-care (01) | LOC: WOU 12:50 | PROVIDERS: ATTEND Podiatrist Foot & Ankle Surgery | DX: S91.312A Laceration without foreign body, left foot, initial encounter (principal); X58.XXXA Exposure to other specified factors, initial encounter; Y92.89 Other specified places as the place of occurrence of the external cause; M14.672 Charcot's joint, left ankle and foot; G60.3 Idiopathic progressive neuropathy; I73.81 Erythromelalgia; M20.41 Other hammer toe(s) (acquired), right foot; M20.42 Other hammer toe(s) (acquired), left foot; I10 Essential (primary) hypertension; R60.0 Localized edema; E66.9 Obesity, unspecified; Z68.30 Body mass index [BMI] 30.0-30.9, adult | CPT/HCPCS: 11042; A6209; A6402 ==

== ENCOUNTER 2018-04-16 12:49 | Outpatient (CLI) | payer BC | END 2018-04-16 23:59 | disposition home or self-care (01) | LOC: WOU 12:49 | PROVIDERS: ATTEND Podiatrist Foot & Ankle Surgery | DX: M14.672 Charcot's joint, left ankle and foot (principal); G60.3 Idiopathic progressive neuropathy; I73.81 Erythromelalgia; M20.42 Other hammer toe(s) (acquired), left foot; R60.0 Localized edema; M20.41 Other hammer toe(s) (acquired), right foot | CPT/HCPCS: 29445; A6402 ×2; Z7610 ==

== ENCOUNTER 2018-04-30 12:50 | Outpatient (CLI) | payer BC | END 2018-04-30 23:59 | disposition home or self-care (01) | LOC: WOU 12:50 | PROVIDERS: ATTEND Podiatrist Foot & Ankle Surgery | DX: S91.312A Laceration without foreign body, left foot, initial encounter (principal); X58.XXXA Exposure to other specified factors, initial encounter; Y92.89 Other specified places as the place of occurrence of the external cause; G60.3 Idiopathic progressive neuropathy; M14.672 Charcot's joint, left ankle and foot; I73.81 Erythromelalgia; M20.42 Other hammer toe(s) (acquired), left foot; M20.41 Other hammer toe(s) (acquired), right foot; R60.0 Localized edema; I10 Essential (primary) hypertension; Z79.899 Other long term (current) drug therapy | CPT/HCPCS: 11042; A6402 ==

== ENCOUNTER 2018-05-25 11:50 | Outpatient (CLI) | payer BC | END 2018-05-25 23:59 | disposition home or self-care (01) | LOC: WOU 11:50 | PROVIDERS: ATTEND Podiatrist Foot & Ankle Surgery | DX: G60.3 Idiopathic progressive neuropathy (principal); L97.522 Non-pressure chronic ulcer of other part of left foot with fat layer exposed; L97.322 Non-pressure chronic ulcer of left ankle with fat layer exposed; L03.116 Cellulitis of left lower limb; M14.672 Charcot's joint, left ankle and foot; E66.9 Obesity, unspecified; Z68.30 Body mass index [BMI] 30.0-30.9, adult; I73.81 Erythromelalgia; M20.41 Other hammer toe(s) (acquired), right foot; M20.42 Other hammer toe(s) (acquired), left foot; L60.0 Ingrowing nail | CPT/HCPCS: 11042; A6209; A6402 ==

== ENCOUNTER 2018-05-28 13:18 | Outpatient (CLI) | payer BC | END 2018-05-28 23:59 | disposition home or self-care (01) | LOC: WOU 13:18 | PROVIDERS: ATTEND Podiatrist Foot & Ankle Surgery | DX: L97.522 Non-pressure chronic ulcer of other part of left foot with fat layer exposed (principal); G60.3 Idiopathic progressive neuropathy; M14.672 Charcot's joint, left ankle and foot; I73.81 Erythromelalgia; M20.42 Other hammer toe(s) (acquired), left foot; M20.41 Other hammer toe(s) (acquired), right foot; R60.0 Localized edema; E66.9 Obesity, unspecified; Z68.30 Body mass index [BMI] 30.0-30.9, adult; Z80.9 Family history of malignant neoplasm, unspecified; Z81.8 Family history of other mental and behavioral disorders; Z82.49 Family history of ischemic heart disease and other diseases of the circulatory system; Z79.899 Other long term (current) drug therapy; K52.1 Toxic gastroenteritis and colitis; T36.95XA Adverse effect of unspecified systemic antibiotic, initial encounter; Y92.019 Unspecified place in single-family (private) house as the place of occurrence of the external cause | CPT/HCPCS: 11042; A6209; A6402 ==

== ENCOUNTER 2018-06-02 13:40 | Outpatient (CLI) | payer SELFPAY | END 2018-06-02 23:59 | disposition home or self-care (01) | LOC: WOU 13:40 | PROVIDERS: ATTEND Podiatrist Foot & Ankle Surgery | DX: G60.3 Idiopathic progressive neuropathy (principal); L97.522 Non-pressure chronic ulcer of other part of left foot with fat layer exposed; L97.322 Non-pressure chronic ulcer of left ankle with fat layer exposed; M14.672 Charcot's joint, left ankle and foot; E66.9 Obesity, unspecified; Z68.30 Body mass index [BMI] 30.0-30.9, adult; I73.81 Erythromelalgia; M20.42 Other hammer toe(s) (acquired), left foot; M20.41 Other hammer toe(s) (acquired), right foot; R60.0 Localized edema; I10 Essential (primary) hypertension | CPT/HCPCS: 11042; A6209; A6402 ==

== ENCOUNTER 2018-06-15 13:15 | Outpatient (CLI) | payer BC | END 2018-06-15 23:59 | disposition home or self-care (01) | LOC: WOU 13:15 | PROVIDERS: ATTEND Podiatrist Foot & Ankle Surgery | DX: G60.3 Idiopathic progressive neuropathy (principal); L97.522 Non-pressure chronic ulcer of other part of left foot with fat layer exposed; L97.322 Non-pressure chronic ulcer of left ankle with fat layer exposed; M14.672 Charcot's joint, left ankle and foot; I73.81 Erythromelalgia; E66.9 Obesity, unspecified; Z68.30 Body mass index [BMI] 30.0-30.9, adult; M20.41 Other hammer toe(s) (acquired), right foot; M20.42 Other hammer toe(s) (acquired), left foot; R60.0 Localized edema; S09.90XA Unspecified injury of head, initial encounter; W05.0XXA Fall from non-moving wheelchair, initial encounter; Z91.81 History of falling; Y93.89 Activity, other specified; Y92.009 Unspecified place in unspecified non-institutional (private) residence as the place of occurrence of the external cause | CPT/HCPCS: 11042; A6209; A6402 ==

== ENCOUNTER 2018-06-15 15:06 | Emergency (ER) | payer SELFPAY ==
[~2018-06-15] VITALS: Ht 180.3 cm; Wt 111.1 kg
[2018-06-15 15:39] VITALS: BP 116/69
--- NOTE | 2018-06-15 16:00 | NUR ---
PT IS WHEELED TO CT SCAN VIA [facility].
[2018-06-15 16:24] LABS: BASOPHILS % (AUTO) 0.4 % (0.0-2.0); HEMATOCRIT 34 % (39-51); HEMOGLOBIN 11.4 g/dL (13.5-17.5); LYMPHOCYTES # (AUTO) 1.5 /CMM (0.8-4.8); MEAN CORPUSCULAR HGB CONC 34 g/dl (31.0-36.0); MEAN CORPUSCULAR VOLUME 92 fL (80-96); MONOCYTES # (AUTO) 0.8 /CMM (0.1-1.30); MONOCYTES % (AUTO) 10.1 % (2.0-12.0); NEUTROPHILS # (AUTO) 5.4 /CMM (1.8-8.9); NEUTROPHILS % (AUTO) 66.5 % (43.0-81.0); PLATELET COUNT (AUTO) 371 /CMM (150-450); RED BLOOD CELL COUNT(AUTO) 3.73 MIL/uL (4.5-6.0); WHITE BLOOD COUNT (AUTO) 8.2 K/uL (4.3-11.0)
[2018-06-15 16:38] LABS: CALCIUM, SERUM 8.4 mg/dL (8.5-10.1); CARBON DIOXIDE 32 mmol/L (21-32); CHLORIDE 99 mmol/L (98-107); CREATININE 1.3 mg/dL (0.6-1.3); GLUCOSE 128 mg/dL (74-106); POTASSIUM 3.5 mmol/L (3.5-5.1); SODIUM SERUM 134 mmol/L (136-145); UREA NITROGEN, BLOOD 23 mg/dL (7-18)
[2018-06-15 16:42] LABS: ALANINE AMINOTRANSFERASE 24 U/L (12-78); ALBUMIN 3.1 g/dL (3.4-5.0); ALKALINE PHOSPHATASE 106 U/L (46-116); ASPARTATE AMINOTRANSFERASE 25 U/L (15-37); BILIRUBIN,DIRECT 0.2 mg/dL (0.0-0.2); BILIRUBIN,TOTAL 0.7 mg/dL (0.2-1.0); TOTAL PROTEIN, SERUM 6.4 g/dL (6.4-8.2)
--- NOTE | 2018-06-15 17:19 | NUR ---
Patient discharged to home in stable condition. Written and verbal after care instructions given. Patient verbalizes understanding of instruction.
== END 2018-06-15 17:21 | disposition home or self-care (01) ==
LOC: ER 15:15
DX: S00.12XA Contusion of left eyelid and periocular area, initial encounter (principal); I10 Essential (primary) hypertension; K21.9 Gastro-esophageal reflux disease without esophagitis; G47.30 Sleep apnea, unspecified; M86.9 Osteomyelitis, unspecified; Z98.890 Other specified postprocedural states; Z79.899 Other long term (current) drug therapy; W05.0XXA Fall from non-moving wheelchair, initial encounter; Y93.89 Activity, other specified; Y92.89 Other specified places as the place of occurrence of the external cause; Y99.8 Other external cause status
CPT/HCPCS: 36415; 70450-TC; 80048-TC; 80076-TC; 84484-TC; 85025-TC; 85730-TC

== ENCOUNTER 2018-06-18 15:22 | Outpatient (CLI) | payer BC ==
[2018-06-18 15:29] VITALS: BP 119/78
== END 2018-06-18 23:59 | disposition home or self-care (01) ==
LOC: MSC 15:22
PROVIDERS: ATTEND Nurse Practitioner Acute Care
DX: G47.33 Obstructive sleep apnea (adult) (pediatric) (principal); G47.419 Narcolepsy without cataplexy; I10 Essential (primary) hypertension; E78.5 Hyperlipidemia, unspecified; G89.4 Chronic pain syndrome; F11.20 Opioid dependence, uncomplicated; A52.16 Charcot's arthropathy (tabetic); F32.9 Major depressive disorder, single episode, unspecified; E66.8 Other obesity; Z99.89 Dependence on other enabling machines and devices; Z91.19 Patient's noncompliance with other medical treatment and regimen

== ENCOUNTER 2018-06-18 19:41 | Emergency (ER) | payer BC ==
[~2018-06-18] VITALS: Ht 180.3 cm; Wt 106.1 kg
--- NOTE | 2018-06-18 19:46 | NUR ---
PT CAME TO EMERGENCY DEPT. BECAUSE HE FELL OFF HIS WHEELCHAIR WHILE SLEEPING. PT IS AXO4. RESPIRATIONS EVEN AND UNLABORED. -KO, NO PAIN AT THIS TIME. PT PUT ON THE AUTOMOTIVE DISMANTLER AND PULSE OX.
--- NOTE | 2018-06-18 20:02 | NUR ---
PT TAKEN TO CT.
--- NOTE | 2018-06-18 20:25 | NUR ---
Patient discharged to home in stable condition. Written and verbal after care instructions given. Patient verbalizes understanding of instruction.
[2018-06-18 20:26] VITALS: BP 136/81
== END 2018-06-18 20:26 | disposition home or self-care (01) ==
LOC: ER 19:44
DX: S05.12XA Contusion of eyeball and orbital tissues, left eye, initial encounter (principal); S09.8XXA Other specified injuries of head, initial encounter; I10 Essential (primary) hypertension; K21.9 Gastro-esophageal reflux disease without esophagitis; Z98.890 Other specified postprocedural states; W18.09XA Striking against other object with subsequent fall, initial encounter; Y93.89 Activity, other specified; Y92.89 Other specified places as the place of occurrence of the external cause; Y99.8 Other external cause status
CPT/HCPCS: 70450-TC

== ENCOUNTER 2018-06-25 13:50 | Outpatient (CLI) | payer BC | END 2018-06-25 23:59 | disposition home or self-care (01) | LOC: WOU 13:50 | PROVIDERS: ATTEND Podiatrist Foot & Ankle Surgery | DX: L97.322 Non-pressure chronic ulcer of left ankle with fat layer exposed (principal); L97.522 Non-pressure chronic ulcer of other part of left foot with fat layer exposed; G60.3 Idiopathic progressive neuropathy; S91.311D Laceration without foreign body, right foot, subsequent encounter; W19.XXXD Unspecified fall, subsequent encounter; I73.81 Erythromelalgia; M20.42 Other hammer toe(s) (acquired), left foot; M20.41 Other hammer toe(s) (acquired), right foot; R60.0 Localized edema; M14.672 Charcot's joint, left ankle and foot | CPT/HCPCS: 11042; A6209; A6402 ==

== ENCOUNTER 2018-07-01 23:52 | Emergency (ER) | payer BC ==
[~2018-07-01] VITALS: Ht 180.3 cm; Wt 104.3 kg
[2018-07-02 00:33] VITALS: BP 136/71
== END 2018-07-02 06:01 | disposition home or self-care (01) ==
LOC: ER 23:55
DX: S09.8XXA Other specified injuries of head, initial encounter (principal); I10 Essential (primary) hypertension; K21.9 Gastro-esophageal reflux disease without esophagitis; M86.9 Osteomyelitis, unspecified; Z98.890 Other specified postprocedural states; Z79.899 Other long term (current) drug therapy; W05.0XXA Fall from non-moving wheelchair, initial encounter; Y93.89 Activity, other specified; Y92.89 Other specified places as the place of occurrence of the external cause; Y99.8 Other external cause status
CPT/HCPCS: 70450-TC

== ENCOUNTER 2018-07-02 14:15 | Outpatient (CLI) | payer BC | END 2018-07-02 23:59 | disposition home or self-care (01) | LOC: WOU 14:15 | PROVIDERS: ATTEND Podiatrist Foot & Ankle Surgery | DX: L97.522 Non-pressure chronic ulcer of other part of left foot with fat layer exposed (principal); L97.322 Non-pressure chronic ulcer of left ankle with fat layer exposed; G60.3 Idiopathic progressive neuropathy; M14.672 Charcot's joint, left ankle and foot; Z91.81 History of falling; I73.81 Erythromelalgia; M20.42 Other hammer toe(s) (acquired), left foot; M20.41 Other hammer toe(s) (acquired), right foot; R60.0 Localized edema; Z79.899 Other long term (current) drug therapy | CPT/HCPCS: 11042; A6209 ==

== ENCOUNTER 2018-07-17 21:10 | Emergency (ER) | payer BC ==
[~2018-07-17] VITALS: Ht 180.3 cm; Wt 104.3 kg
--- NOTE | 2018-07-17 21:30 | NUR ---
BIB SELF. AAOX4. AMBULATORY WITH L LOWER LEG CAST WITH AND AIDE OF A ASSISTIVE DEVICE. NAD. BREATHING EVEN AND UNLABORED. PT CAME IN FOR WOUND CHECK D/T PT MISSED HIS WOUND APPOINTMENT. PT ALSO STATES THAT HE HAS AN UPPER RESP INFECTION. PT TO ER BED 10. AWAING MD GONZALEZ.
--- NOTE | 2018-07-17 22:02 | NUR ---
TECH AT BEDSIDE REMOVING CAST
[2018-07-17] MEDS ORDERED: ALBUTEROL FS 2.5 MG/0.5 ML VIAL.NEB NEB ONE (22:30)
--- NOTE | 2018-07-17 23:20 | NUR ---
TECH AT BEDSIDE FOR WOUND DRESSING.
[2018-07-17 23:29] VITALS: BP 132/86
--- NOTE | 2018-07-17 23:31 | NUR ---
Patient discharged to home in stable condition. Written and verbal after care instructions given. Patient verbalizes understanding of instruction.
== END 2018-07-17 23:32 | disposition home or self-care (01) ==
LOC: ER 21:14
DX: J20.9 Acute bronchitis, unspecified (principal); I11.9 Hypertensive heart disease without heart failure; K21.9 Gastro-esophageal reflux disease without esophagitis; I73.81 Erythromelalgia; Z48.01 Encounter for change or removal of surgical wound dressing; Z98.890 Other specified postprocedural states
CPT/HCPCS: 71045-TC

== ENCOUNTER 2018-07-20 13:35 | Outpatient (CLI) | payer BC ==
[~2018-07-20 13:35] MED LIST changes: +ALBUTEROL FS 2.5 MG/0.5 ML VIAL.NEB ONE
== END 2018-07-20 23:59 | disposition home or self-care (01) ==
LOC: WOU 13:35
PROVIDERS: ATTEND Podiatrist Foot & Ankle Surgery
DX: G60.3 Idiopathic progressive neuropathy (principal); L97.522 Non-pressure chronic ulcer of other part of left foot with fat layer exposed; L97.322 Non-pressure chronic ulcer of left ankle with fat layer exposed; S91.212A Laceration without foreign body of left great toe with damage to nail, initial encounter; M14.672 Charcot's joint, left ankle and foot; Z91.81 History of falling; I73.81 Erythromelalgia; M20.42 Other hammer toe(s) (acquired), left foot; M20.41 Other hammer toe(s) (acquired), right foot; R60.0 Localized edema; Z79.891 Long term (current) use of opiate analgesic; X58.XXXA Exposure to other specified factors, initial encounter; Y92.89 Other specified places as the place of occurrence of the external cause
CPT/HCPCS: 11042; A6209 ×2; A6402

== ENCOUNTER 2018-07-27 13:50 | Outpatient (CLI) | payer BC ==
[~2018-07-27 13:50] MED LIST changes: -ALBUTEROL FS 2.5 MG/0.5 ML VIAL.NEB ONE
== END 2018-07-27 23:59 | disposition home or self-care (01) ==
LOC: WOU 13:50
PROVIDERS: ATTEND Podiatrist Foot & Ankle Surgery
DX: G60.3 Idiopathic progressive neuropathy (principal); L97.524 Non-pressure chronic ulcer of other part of left foot with necrosis of bone; L97.323 Non-pressure chronic ulcer of left ankle with necrosis of muscle; S91.212D Laceration without foreign body of left great toe with damage to nail, subsequent encounter; X58.XXXD Exposure to other specified factors, subsequent encounter; M14.672 Charcot's joint, left ankle and foot; I73.81 Erythromelalgia; M20.42 Other hammer toe(s) (acquired), left foot; M20.41 Other hammer toe(s) (acquired), right foot; R60.0 Localized edema; Z91.81 History of falling; S91.011A Laceration without foreign body, right ankle, initial encounter; X58.XXXA Exposure to other specified factors, initial encounter; Y92.89 Other specified places as the place of occurrence of the external cause
CPT/HCPCS: 11043; 11044; A6207; A6209; A6402

== ENCOUNTER 2018-08-03 13:50 | Outpatient (CLI) | payer BC | END 2018-08-03 23:59 | disposition home or self-care (01) | LOC: WOU 13:50 | PROVIDERS: ATTEND Podiatrist Foot & Ankle Surgery | DX: I87.311 Chronic venous hypertension (idiopathic) with ulcer of right lower extremity (principal); G60.3 Idiopathic progressive neuropathy; L97.526 Non-pressure chronic ulcer of other part of left foot with bone involvement without evidence of necrosis; L97.323 Non-pressure chronic ulcer of left ankle with necrosis of muscle; L97.812 Non-pressure chronic ulcer of other part of right lower leg with fat layer exposed; M14.672 Charcot's joint, left ankle and foot; Z91.81 History of falling; I73.81 Erythromelalgia; M20.42 Other hammer toe(s) (acquired), left foot; M20.41 Other hammer toe(s) (acquired), right foot; R60.0 Localized edema; Z79.891 Long term (current) use of opiate analgesic | CPT/HCPCS: 11042; 11043; A6209; A6402 ==

== ENCOUNTER 2018-08-10 14:00 | Outpatient (CLI) | payer BC | END 2018-08-10 23:59 | disposition home or self-care (01) | LOC: WOU 14:00 | PROVIDERS: ATTEND Podiatrist Foot & Ankle Surgery | DX: G60.3 Idiopathic progressive neuropathy (principal); L97.523 Non-pressure chronic ulcer of other part of left foot with necrosis of muscle; L97.323 Non-pressure chronic ulcer of left ankle with necrosis of muscle; M14.672 Charcot's joint, left ankle and foot; M20.42 Other hammer toe(s) (acquired), left foot; M20.41 Other hammer toe(s) (acquired), right foot; I73.81 Erythromelalgia; R60.0 Localized edema; Z91.81 History of falling | CPT/HCPCS: 11043; A6209; A6402 ==

== ENCOUNTER 2018-08-20 13:53 | Outpatient (CLI) | payer BC | END 2018-08-20 23:59 | disposition home or self-care (01) | LOC: WOU 13:53 | PROVIDERS: ATTEND Podiatrist Foot & Ankle Surgery | DX: G60.3 Idiopathic progressive neuropathy (principal); L97.523 Non-pressure chronic ulcer of other part of left foot with necrosis of muscle; L97.323 Non-pressure chronic ulcer of left ankle with necrosis of muscle; I87.331 Chronic venous hypertension (idiopathic) with ulcer and inflammation of right lower extremity; L97.812 Non-pressure chronic ulcer of other part of right lower leg with fat layer exposed; L03.115 Cellulitis of right lower limb; M14.672 Charcot's joint, left ankle and foot; Z91.81 History of falling; I73.81 Erythromelalgia; M20.42 Other hammer toe(s) (acquired), left foot; M20.41 Other hammer toe(s) (acquired), right foot; R60.0 Localized edema | CPT/HCPCS: 11043; A6209; A6402 ==

== ENCOUNTER 2018-09-03 13:20 | Outpatient (CLI) | payer BC | END 2018-09-03 23:59 | disposition home or self-care (01) | LOC: WOU 13:20 | PROVIDERS: ATTEND Podiatrist Foot & Ankle Surgery | DX: G60.3 Idiopathic progressive neuropathy (principal); L97.523 Non-pressure chronic ulcer of other part of left foot with necrosis of muscle; L97.323 Non-pressure chronic ulcer of left ankle with necrosis of muscle; M14.672 Charcot's joint, left ankle and foot; Z91.81 History of falling; I73.81 Erythromelalgia; M20.42 Other hammer toe(s) (acquired), left foot; M20.41 Other hammer toe(s) (acquired), right foot; R60.0 Localized edema | CPT/HCPCS: 11043; A6209; A6402 ==

== ENCOUNTER 2018-09-10 13:50 | Outpatient (CLI) | payer BC | END 2018-09-10 23:59 | disposition home or self-care (01) | LOC: WOU 13:50 | PROVIDERS: ATTEND Podiatrist Foot & Ankle Surgery | DX: G60.3 Idiopathic progressive neuropathy (principal); L97.523 Non-pressure chronic ulcer of other part of left foot with necrosis of muscle; L97.323 Non-pressure chronic ulcer of left ankle with necrosis of muscle; M14.672 Charcot's joint, left ankle and foot; Z91.81 History of falling; I73.81 Erythromelalgia; M20.42 Other hammer toe(s) (acquired), left foot; M20.41 Other hammer toe(s) (acquired), right foot; R60.0 Localized edema | CPT/HCPCS: 11043; A6209; A6402 ==

== ENCOUNTER 2018-09-17 13:25 | Outpatient (CLI) | payer BC | END 2018-09-17 23:59 | disposition home or self-care (01) | LOC: WOU 13:25 | PROVIDERS: ATTEND Podiatrist Foot & Ankle Surgery | DX: G60.3 Idiopathic progressive neuropathy (principal); L97.523 Non-pressure chronic ulcer of other part of left foot with necrosis of muscle; L97.323 Non-pressure chronic ulcer of left ankle with necrosis of muscle; M14.672 Charcot's joint, left ankle and foot; I73.81 Erythromelalgia; M20.42 Other hammer toe(s) (acquired), left foot; M20.41 Other hammer toe(s) (acquired), right foot; R60.0 Localized edema; Z91.81 History of falling; Z79.899 Other long term (current) drug therapy | CPT/HCPCS: 11043; A6209; A6402 ==

== ENCOUNTER 2018-09-28 13:23 | Outpatient (CLI) | payer BC | END 2018-09-28 23:59 | disposition home or self-care (01) | LOC: WOU 13:23 | PROVIDERS: ATTEND Podiatrist Foot & Ankle Surgery | DX: G60.3 Idiopathic progressive neuropathy (principal); L97.522 Non-pressure chronic ulcer of other part of left foot with fat layer exposed; L97.322 Non-pressure chronic ulcer of left ankle with fat layer exposed; I87.311 Chronic venous hypertension (idiopathic) with ulcer of right lower extremity; M14.672 Charcot's joint, left ankle and foot; I73.81 Erythromelalgia; M20.42 Other hammer toe(s) (acquired), left foot; M20.41 Other hammer toe(s) (acquired), right foot; R60.0 Localized edema; S81.811A Laceration without foreign body, right lower leg, initial encounter; X58.XXXA Exposure to other specified factors, initial encounter; Y92.89 Other specified places as the place of occurrence of the external cause; F11.90 Opioid use, unspecified, uncomplicated | CPT/HCPCS: 11042; A6209; A6402 ==

== ENCOUNTER 2018-10-08 13:30 | Outpatient (CLI) | payer BC | END 2018-10-08 23:59 | disposition home or self-care (01) | LOC: WOU 13:30 | PROVIDERS: ATTEND Podiatrist Foot & Ankle Surgery | DX: L97.522 Non-pressure chronic ulcer of other part of left foot with fat layer exposed (principal); L97.322 Non-pressure chronic ulcer of left ankle with fat layer exposed; G60.3 Idiopathic progressive neuropathy; Z91.81 History of falling; I73.81 Erythromelalgia; M20.42 Other hammer toe(s) (acquired), left foot; M20.41 Other hammer toe(s) (acquired), right foot; Z87.828 Personal history of other (healed) physical injury and trauma; I87.311 Chronic venous hypertension (idiopathic) with ulcer of right lower extremity; L97.818 Non-pressure chronic ulcer of other part of right lower leg with other specified severity; M14.672 Charcot's joint, left ankle and foot | CPT/HCPCS: 11042; A6209; A6402 ×2 ==

== ENCOUNTER 2018-10-15 13:23 | Outpatient (CLI) | payer BC | END 2018-10-15 23:59 | disposition home or self-care (01) | LOC: WOU 13:23 | PROVIDERS: ATTEND Podiatrist Foot & Ankle Surgery | DX: G60.3 Idiopathic progressive neuropathy (principal); L97.522 Non-pressure chronic ulcer of other part of left foot with fat layer exposed; L97.322 Non-pressure chronic ulcer of left ankle with fat layer exposed; I73.81 Erythromelalgia; Z91.81 History of falling; I87.311 Chronic venous hypertension (idiopathic) with ulcer of right lower extremity; L97.819 Non-pressure chronic ulcer of other part of right lower leg with unspecified severity; M14.672 Charcot's joint, left ankle and foot | CPT/HCPCS: 11042; A6209 ==

== ENCOUNTER 2018-10-22 13:30 | Outpatient (CLI) | payer BC | END 2018-10-22 23:59 | disposition home or self-care (01) | LOC: WOU 13:30 | PROVIDERS: ATTEND Podiatrist Foot & Ankle Surgery | DX: G60.3 Idiopathic progressive neuropathy (principal); L97.322 Non-pressure chronic ulcer of left ankle with fat layer exposed; I87.311 Chronic venous hypertension (idiopathic) with ulcer of right lower extremity; L97.818 Non-pressure chronic ulcer of other part of right lower leg with other specified severity; R60.0 Localized edema; M20.41 Other hammer toe(s) (acquired), right foot; M20.42 Other hammer toe(s) (acquired), left foot; I73.81 Erythromelalgia; M14.672 Charcot's joint, left ankle and foot; Z91.81 History of falling; L97.522 Non-pressure chronic ulcer of other part of left foot with fat layer exposed | CPT/HCPCS: 11042; A6209 ==

== ENCOUNTER 2018-11-02 11:40 | Outpatient (CLI) | payer BC | END 2018-11-02 23:59 | disposition home or self-care (01) | LOC: WOU 11:40 | PROVIDERS: ATTEND Podiatrist Foot & Ankle Surgery | DX: G60.3 Idiopathic progressive neuropathy (principal); L97.522 Non-pressure chronic ulcer of other part of left foot with fat layer exposed; L97.322 Non-pressure chronic ulcer of left ankle with fat layer exposed; S81.811D Laceration without foreign body, right lower leg, subsequent encounter; X58.XXXD Exposure to other specified factors, subsequent encounter; M14.672 Charcot's joint, left ankle and foot; I73.81 Erythromelalgia; M20.42 Other hammer toe(s) (acquired), left foot; M20.41 Other hammer toe(s) (acquired), right foot; R60.0 Localized edema; Z91.81 History of falling | CPT/HCPCS: 11042; A6209 ==

== ENCOUNTER 2018-11-02 14:57 | Emergency (ER) | payer BC ==
[~2018-11-02] VITALS: Ht 180.3 cm; Wt 104.3 kg
--- NOTE | 2018-11-02 15:11 | NUR ---
"FEVER SINCE LAST NIGHT 101 F PER PT " PT AAOX4, -SOB, NAD NOTED, VSS ,PENDING MD GONZALEZ
[2018-11-02] MEDS ORDERED: ACETAMINOPHEN ES 500 MG TABLET PO ONE (15:30)
[2018-11-02] MEDS ORDERED: IV NS 0.9% 1,000 ML BAG IV ONE ×2 (15:30→16:30)
[2018-11-02 15:53] LABS: BASOPHILS % (AUTO) 0.6 % (0.0-2.0); EOSINOPHILS % (AUTO) 1.3 % (0.0-6.0); HEMATOCRIT 34 % (39-51); HEMOGLOBIN 11.4 g/dL (13.5-17.5); LYMPHOCYTES % (AUTO) 12.5 % (20.0-44.0); MEAN CORPUSCULAR HGB CONC 33 g/dl (31.0-36.0); MEAN CORPUSCULAR VOLUME 87 fL (80-96); MONOCYTES # (AUTO) 0.6 /CMM (0.1-1.30); MONOCYTES % (AUTO) 8.4 % (2.0-12.0); NEUTROPHILS # (AUTO) 5.9 /CMM (1.8-8.9); NEUTROPHILS % (AUTO) 77.2 % (43.0-81.0); PLATELET COUNT (AUTO) 242 /CMM (150-450); RED BLOOD CELL COUNT(AUTO) 3.93 MIL/uL (4.5-6.0); WHITE BLOOD COUNT (AUTO) 7.7 K/uL (4.3-11.0)
[2018-11-02] MEDS ORDERED: ACETAMINOPHEN ES 500 MG TABLET ONE (15:58)
[2018-11-02 16:00] LABS: CALCIUM, SERUM 8.6 mg/dL (8.5-10.1); CREATININE 1.8 mg/dL (0.6-1.3); POTASSIUM 3.8 mmol/L (3.5-5.1)
[2018-11-02 16:05] LABS: BILIRUBIN,DIRECT 0.2 mg/dL (0.0-0.2); BILIRUBIN,TOTAL 1.2 mg/dL (0.2-1.0); TOTAL PROTEIN, SERUM 6.1 g/dL (6.4-8.2)
[2018-11-02 18:06] LABS: BILIRUBIN,URINE Negative (NEGATIVE); BLOOD, URINE Negative Ery/uL (NEGATIVE); COLOR,URINE Yellow (YELLOW); KETONES,URINE Negative (NEGATIVE); LEUKOCYTE ESTERASE ,URINE Trace (NEGATIVE); NITRITE, URINE Negative (NEGATIVE); PH,URINE 6.5 (5.0-8.0); PROTEIN,URINE Negative (NEGATIVE); UGLUCOSE Negative (NEGATIVE); UROBILINOGEN,URINE 0.2 EU/dL (0.2)
[2018-11-02 18:12] LABS: APPEARANCE,URINE HAZY (CLEAR); RBC,URINE 0-2 /HPF (0-2)
[2018-11-02 18:13] LABS: BACTERIA,URINE Few /HPF (None Seen)
[2018-11-02 18:14] LABS: MUCUS,URINE Few /LPF (None Seen); SQUAMOUS EPITHELIAL CELL,UR Rare /HPF (None Seen)
[2018-11-02 18:39] VITALS: BP 102/53
--- NOTE | 2018-11-02 19:01 | NUR ---
DPatient discharged to home in stable condition. Written and verbal after care instructions given. Patient verbalizes understanding of instruction. IV removed. Catheter intact and site benign. Pressure and 4x4 applied to site. No bleeding noted.
== END 2018-11-02 19:07 | disposition home or self-care (01) ==
LOC: ER 14:59
DX: R50.9 Fever, unspecified (principal); I95.9 Hypotension, unspecified; R00.0 Tachycardia, unspecified; K21.9 Gastro-esophageal reflux disease without esophagitis; Z98.890 Other specified postprocedural states
CPT/HCPCS: 36415; 71045-TC; 80048-TC; 80076-TC; 81000-TC; 83605-TC; 84484-TC; 85025-TC; 85730-TC; 87040-TC; 87086-TC

== ENCOUNTER 2018-11-16 10:30 | Outpatient (CLI) | payer BC | END 2018-11-16 23:59 | disposition home or self-care (01) | LOC: WOU 10:30 | PROVIDERS: ATTEND Podiatrist Foot & Ankle Surgery | DX: G60.3 Idiopathic progressive neuropathy (principal); L97.522 Non-pressure chronic ulcer of other part of left foot with fat layer exposed; L97.322 Non-pressure chronic ulcer of left ankle with fat layer exposed; M14.672 Charcot's joint, left ankle and foot; S81.811A Laceration without foreign body, right lower leg, initial encounter; X58.XXXA Exposure to other specified factors, initial encounter; Y92.89 Other specified places as the place of occurrence of the external cause; Z91.81 History of falling; I73.81 Erythromelalgia; M20.41 Other hammer toe(s) (acquired), right foot; M20.42 Other hammer toe(s) (acquired), left foot; R60.0 Localized edema | CPT/HCPCS: 11042; 11045; A6209 ==

== ENCOUNTER 2018-11-26 14:30 | Outpatient (CLI) | payer BC | END 2018-11-26 23:59 | disposition home or self-care (01) | LOC: WOU 14:30 | PROVIDERS: ATTEND Podiatrist Foot & Ankle Surgery | DX: I87.311 Chronic venous hypertension (idiopathic) with ulcer of right lower extremity (principal); L97.322 Non-pressure chronic ulcer of left ankle with fat layer exposed; L97.522 Non-pressure chronic ulcer of other part of left foot with fat layer exposed; L97.812 Non-pressure chronic ulcer of other part of right lower leg with fat layer exposed; I73.81 Erythromelalgia; M20.41 Other hammer toe(s) (acquired), right foot; M20.42 Other hammer toe(s) (acquired), left foot; R60.0 Localized edema; M14.672 Charcot's joint, left ankle and foot | CPT/HCPCS: 11042; A6209 ==

== ENCOUNTER 2018-12-07 12:25 | Outpatient (CLI) | payer BC | END 2018-12-07 23:59 | disposition home or self-care (01) | LOC: WOU 12:25 | PROVIDERS: ATTEND Podiatrist Foot & Ankle Surgery | DX: I87.311 Chronic venous hypertension (idiopathic) with ulcer of right lower extremity (principal); L97.812 Non-pressure chronic ulcer of other part of right lower leg with fat layer exposed; G60.3 Idiopathic progressive neuropathy; L97.322 Non-pressure chronic ulcer of left ankle with fat layer exposed; L97.522 Non-pressure chronic ulcer of other part of left foot with fat layer exposed; S81.811D Laceration without foreign body, right lower leg, subsequent encounter; X58.XXXD Exposure to other specified factors, subsequent encounter; M14.672 Charcot's joint, left ankle and foot; I73.81 Erythromelalgia; M20.42 Other hammer toe(s) (acquired), left foot; M20.41 Other hammer toe(s) (acquired), right foot; R60.0 Localized edema | CPT/HCPCS: 11042; A6209 ==

== ENCOUNTER 2018-12-17 11:55 | Outpatient (CLI) | payer BC | END 2018-12-17 23:59 | disposition home or self-care (01) | LOC: WOU 11:55 | PROVIDERS: ATTEND Podiatrist Foot & Ankle Surgery | DX: L97.522 Non-pressure chronic ulcer of other part of left foot with fat layer exposed (principal); L97.322 Non-pressure chronic ulcer of left ankle with fat layer exposed; G60.3 Idiopathic progressive neuropathy; M14.672 Charcot's joint, left ankle and foot; Z91.81 History of falling; I73.81 Erythromelalgia; M20.42 Other hammer toe(s) (acquired), left foot; M20.41 Other hammer toe(s) (acquired), right foot; R60.0 Localized edema | CPT/HCPCS: 11042; A6209 ==

== ENCOUNTER 2018-12-28 11:30 | Outpatient (CLI) | payer BC | END 2018-12-28 23:59 | disposition home or self-care (01) | LOC: WOU 11:30 | PROVIDERS: ATTEND Podiatrist Foot & Ankle Surgery | DX: G60.3 Idiopathic progressive neuropathy (principal); L97.522 Non-pressure chronic ulcer of other part of left foot with fat layer exposed; M14.672 Charcot's joint, left ankle and foot; S81.811D Laceration without foreign body, right lower leg, subsequent encounter; X58.XXXD Exposure to other specified factors, subsequent encounter; M20.41 Other hammer toe(s) (acquired), right foot; M20.42 Other hammer toe(s) (acquired), left foot; I73.81 Erythromelalgia; R60.0 Localized edema; Z91.81 History of falling | CPT/HCPCS: 11042; A6209 ==

== ENCOUNTER 2018-12-31 11:12 | Outpatient (CLI) | payer BC | END 2018-12-31 23:59 | disposition home or self-care (01) | LOC: WOU 11:12 | PROVIDERS: ATTEND Podiatrist Foot & Ankle Surgery | DX: L97.525 Non-pressure chronic ulcer of other part of left foot with muscle involvement without evidence of necrosis (principal); L97.322 Non-pressure chronic ulcer of left ankle with fat layer exposed; G60.3 Idiopathic progressive neuropathy; M14.672 Charcot's joint, left ankle and foot; Z91.81 History of falling; I73.81 Erythromelalgia; M20.42 Other hammer toe(s) (acquired), left foot; M20.41 Other hammer toe(s) (acquired), right foot; R60.0 Localized edema | CPT/HCPCS: 11043; A6209 ==

== ENCOUNTER 2019-01-07 11:55 | Outpatient (CLI) | payer BC | END 2019-01-07 23:59 | disposition home or self-care (01) | LOC: WOU 11:55 | PROVIDERS: ATTEND Podiatrist Foot & Ankle Surgery | DX: L97.525 Non-pressure chronic ulcer of other part of left foot with muscle involvement without evidence of necrosis (principal); S81.811S Laceration without foreign body, right lower leg, sequela; X58.XXXS Exposure to other specified factors, sequela; M14.672 Charcot's joint, left ankle and foot; G60.3 Idiopathic progressive neuropathy; Z91.81 History of falling; I73.81 Erythromelalgia; M20.42 Other hammer toe(s) (acquired), left foot; M20.41 Other hammer toe(s) (acquired), right foot; R60.0 Localized edema | CPT/HCPCS: 11042; A6209 ==

== ENCOUNTER 2019-01-14 13:00 | Outpatient (CLI) | payer BC | END 2019-01-14 23:59 | disposition home or self-care (01) | LOC: WOU 13:00 | PROVIDERS: ATTEND Podiatrist Foot & Ankle Surgery | DX: L97.522 Non-pressure chronic ulcer of other part of left foot with fat layer exposed (principal); L97.322 Non-pressure chronic ulcer of left ankle with fat layer exposed; G60.3 Idiopathic progressive neuropathy; Z91.81 History of falling; I73.81 Erythromelalgia; M20.42 Other hammer toe(s) (acquired), left foot; M20.41 Other hammer toe(s) (acquired), right foot; R60.0 Localized edema; S81.811D Laceration without foreign body, right lower leg, subsequent encounter; X58.XXXD Exposure to other specified factors, subsequent encounter; M14.672 Charcot's joint, left ankle and foot | CPT/HCPCS: 11042 ==

== ENCOUNTER 2019-01-21 13:35 | Outpatient (CLI) | payer BC | END 2019-01-21 23:59 | disposition home or self-care (01) | LOC: WOU 13:35 | PROVIDERS: ATTEND Podiatrist Foot & Ankle Surgery | DX: L97.522 Non-pressure chronic ulcer of other part of left foot with fat layer exposed (principal); G60.3 Idiopathic progressive neuropathy; M14.672 Charcot's joint, left ankle and foot; Z91.81 History of falling; I73.81 Erythromelalgia; R60.0 Localized edema; M20.41 Other hammer toe(s) (acquired), right foot; M20.42 Other hammer toe(s) (acquired), left foot | CPT/HCPCS: 11042 ==

== ENCOUNTER 2019-02-01 12:10 | Outpatient (CLI) | payer BC | END 2019-02-01 23:59 | disposition home or self-care (01) | LOC: WOU 12:10 | PROVIDERS: ATTEND Podiatrist Foot & Ankle Surgery | DX: G60.3 Idiopathic progressive neuropathy (principal); L97.522 Non-pressure chronic ulcer of other part of left foot with fat layer exposed; L97.818 Non-pressure chronic ulcer of other part of right lower leg with other specified severity; M14.672 Charcot's joint, left ankle and foot; I73.81 Erythromelalgia; M20.41 Other hammer toe(s) (acquired), right foot; M20.42 Other hammer toe(s) (acquired), left foot; Z91.81 History of falling; R60.0 Localized edema | CPT/HCPCS: 11042 ==

== ENCOUNTER 2019-02-08 13:10 | Outpatient (CLI) | payer BC | END 2019-02-08 23:59 | disposition home or self-care (01) | LOC: WOU 13:10 | PROVIDERS: ATTEND Podiatrist Foot & Ankle Surgery | DX: G60.3 Idiopathic progressive neuropathy (principal); L97.522 Non-pressure chronic ulcer of other part of left foot with fat layer exposed; M14.672 Charcot's joint, left ankle and foot; I73.81 Erythromelalgia; M20.41 Other hammer toe(s) (acquired), right foot; M20.42 Other hammer toe(s) (acquired), left foot; R60.0 Localized edema; Z91.81 History of falling; Z79.899 Other long term (current) drug therapy | CPT/HCPCS: 11042 ==

== ENCOUNTER 2019-02-15 13:00 | Outpatient (CLI) | payer BC | END 2019-02-15 23:59 | disposition home or self-care (01) | LOC: WOU 13:00 | PROVIDERS: ATTEND Podiatrist Foot & Ankle Surgery | DX: G60.3 Idiopathic progressive neuropathy (principal); L97.522 Non-pressure chronic ulcer of other part of left foot with fat layer exposed; I73.81 Erythromelalgia; M14.672 Charcot's joint, left ankle and foot; M20.41 Other hammer toe(s) (acquired), right foot; M20.42 Other hammer toe(s) (acquired), left foot; R60.0 Localized edema; I10 Essential (primary) hypertension; Z91.81 History of falling | CPT/HCPCS: 11042; A6197 ==

== ENCOUNTER 2019-02-15 15:18 | Outpatient (CLI) | payer BC ==
[~2019-02-15 15:18] MED LIST changes: +BUPR-319 PO; -BUPR300T54 PO
[2019-02-15 15:56] VITALS: BP 149/73
== END 2019-02-15 23:59 | disposition home or self-care (01) ==
LOC: MSC 15:18
PROVIDERS: ATTEND Internal Medicine
DX: M70.22 Olecranon bursitis, left elbow (principal); Y93.9 Activity, unspecified; I25.10 Atherosclerotic heart disease of native coronary artery without angina pectoris; I10 Essential (primary) hypertension; M14.672 Charcot's joint, left ankle and foot; L97.929 Non-pressure chronic ulcer of unspecified part of left lower leg with unspecified severity; E78.5 Hyperlipidemia, unspecified; K21.9 Gastro-esophageal reflux disease without esophagitis; F41.8 Other specified anxiety disorders; F11.90 Opioid use, unspecified, uncomplicated; Z79.899 Other long term (current) drug therapy

== ENCOUNTER 2019-02-25 12:55 | Outpatient (CLI) | payer BC | END 2019-02-25 23:59 | disposition home or self-care (01) | LOC: WOU 12:55 | PROVIDERS: ATTEND Podiatrist Foot & Ankle Surgery | DX: L97.522 Non-pressure chronic ulcer of other part of left foot with fat layer exposed (principal); L97.812 Non-pressure chronic ulcer of other part of right lower leg with fat layer exposed; G60.3 Idiopathic progressive neuropathy; M14.672 Charcot's joint, left ankle and foot; I73.81 Erythromelalgia; R60.0 Localized edema; M20.41 Other hammer toe(s) (acquired), right foot; M20.42 Other hammer toe(s) (acquired), left foot; Z91.81 History of falling | CPT/HCPCS: 11042; A6209 ==

== ENCOUNTER 2019-03-08 14:00 | Outpatient (CLI) | payer BC ==
[~2019-03-08 14:00] MED LIST changes: -BUPR-319 PO; +BUPR300T54 PO
== END 2019-03-08 23:59 | disposition home or self-care (01) ==
LOC: WOU 14:00
PROVIDERS: ATTEND Podiatrist Foot & Ankle Surgery
DX: G60.3 Idiopathic progressive neuropathy (principal); L97.522 Non-pressure chronic ulcer of other part of left foot with fat layer exposed; L97.818 Non-pressure chronic ulcer of other part of right lower leg with other specified severity; S91.111A Laceration without foreign body of right great toe without damage to nail, initial encounter; X58.XXXA Exposure to other specified factors, initial encounter; Y92.89 Other specified places as the place of occurrence of the external cause; M14.672 Charcot's joint, left ankle and foot; I73.81 Erythromelalgia; M20.41 Other hammer toe(s) (acquired), right foot; M20.42 Other hammer toe(s) (acquired), left foot; R60.0 Localized edema; Z91.81 History of falling
CPT/HCPCS: 11042